=== PATIENT | female | born 1950 | race Caucasian/White ===

== ENCOUNTER 2017-12-02 05:29 | Outpatient (CLI) | payer MEDICARE, BC, SELFPAY ==
[2017-12-02 12:10] LABS: Hemoglobin A1C 5.3 % (4.5-6.2)
[2017-12-02 12:23] LABS: Cholesterol 214 mg/dL (50-200); HDL Cholesterol 95 mg/dL (40-60); LDL CHOLESTEROL 109 mg/dL (<100); Triglyceride 50 mg/dL (30-150)
== END 2017-12-02 05:49 ==
PROVIDERS: PCP Nurse Practitioner Family; Visit Provider Nurse Practitioner Family
DX: R73.03 Prediabetes (principal); E78.6 Lipoprotein deficiency
CPT/HCPCS: 36415; 80061; 83721; 83036

== ENCOUNTER 2018-01-03 00:43 | Outpatient (CLI) | payer MEDICARE, BC, SELFPAY ==
--- NOTE | 2018-01-03 15:20 | DI.RAD_ITS ---
SYMPTOMS/DIAGNOSIS: OSTEOPOROSIS SCREENING, Z78.0 DEXA SCAN: Routine examination. No priors. Evaluation of the lateral spine shows no compression deformities. Evaluation of the left hip shows a total T score of -1.5 and a Z score of -0.3. This is consistent with osteopenia and an increased fracture risk. Evaluation of the lumbar spine shows a total T score of -0.9 and a Z score of 0.9, which is within normal limits. IMPRESSION: Osteopenia in the left hip.
--- NOTE | 2018-01-03 15:40 | DI.MAMMO_ITS ---
SYMPTOM/DIAGNOSIS: SCREENING MAMMOGRAMS: Mammograms were interpreted according to the usual protocol including computer analysis with CAD system, tomosynthesis and C view imaging. Comparison is with the prior examinations. No masses or microcalcifications are seen. There is nothing to suggest malignancy. IMPRESSION: Negative mammogram. Routine screening is recommended. Category 1 , breast density category C. MQSA ASSESSMENT OF FINDINGS: Negative. Category 1. Patient will receive a letter notifying them of these results. Bi-RADS category C. The breasts are heterogeneously dense, which may obscure small masses.
== END 2018-01-03 01:03 ==
PROVIDERS: PCP Nurse Practitioner Family; Visit Provider Nurse Practitioner Family
DX: Z12.31 Encounter for screening mammogram for malignant neoplasm of breast (principal); M85.88 Other specified disorders of bone density and structure, other site; Z78.0 Asymptomatic menopausal state
CPT/HCPCS: 77063; 77067; 77080

== ENCOUNTER 2018-10-18 08:14 | Emergency (ER) | payer MEDICARE, BC, SELFPAY ==
[2018-10-18 08:17] VITALS: BP 116/60; PULSE 53; RESP 16; TEMP 36.7; O2SAT 98
--- NOTE | 2018-10-18 08:20 | ED.GENADUL_ITS ---
Discharge Plan Disposition Patient Disposition: HOME Condition: Stable Discharge Details Chief Complaint: Orthopedic Clinical Impression: Closed fracture of both wrists, Closed head injury, Abrasion Primary Care Provider: Felipa Mensah ED Provider: Moon Cuadra Home Meds and New Rx's Prescriptions: New tramadol 50 mg tablet 50 mg PO Q6H PRN (Reason: pain) Qty: 10 RF: 0 Continued omeprazole 20 mg capsule,delayed release(DR/EC) 20 mg PO DAILY Qty: 90 RF: 4 No Action acetaminophen 500 mg tablet 1,000 mg PO Q8H PRN (Reason: pain) Qty: 60 RF: 3 ibuprofen 600 mg tablet 600 mg PO TID PRNQty: 60 RF: 3 Discharge Instructions Instructions: Wrist Fracture in Adults (ED), Head Injury (ED), Abrasion (ED) Additional Instructions: Alternate tylenol and motrin as needed and directed for pain. Take the tramadol as needed and directed for pain not relieved with motrin or tylenol. You will receive a call from orthopedics Dr. Cabello later today. Follow-up with your primary care doctor next week for reevaluation of your head injury as needed. Return to the emergency department if you develop any worsening or concerning symptoms of persistent numbness or tingling in your fingers or hands, fever, persistent headaches, vomiting, dizziness or any other concerns. Referrals: Low Cabello MD [ [facility] STAFF PHYSICIAN] - Discharge Data Discharge Date/Time-TO BE ENTERED AT DEPARTURE: 10/18/18 11:50 Discharge Physician: Moon Cuadra Medical Decision Making 68-year-old female who presents with bilateral wrist pain, headache and bilateral knee abrasions status post mechanical fall prior to arrival. She is unsure of LOC. States headache is 5/10. No C-spine, T-spine or L-spine tenderness. Chest and abdomen nontender. Bilateral wrist tenderness. No bony deformity. Remainder of extremities with normal range of motion and without bony deformity. Tetanus up-to-date. Will give a dose of Tylenol, and sent for CT head and bilateral wrist x-rays. 0910 --right wrist x-ray notes right distal radius fracture and ulnar styloid fracture. Left wrist x-ray notes radial styloid and ulnar styloid fractures. CT head negative. 1000 --xrays reviewed with Dr. Cabello -patient will need operative repair of right wrist. Requesting CT of left wrist for further evaluation. CT L wrist notes intraarticular fracture of radius; ulna fracture not seen; possible tiny calcific densities within carpal bones that may be avulsion fractures. Please note that CT R wrist was done in error by radiology - they switched the order thinking it was ordered wrong. D/w radiology and they will d/w Judi if they can omit this from pt charges. CT L wrist reviewed with Dr. Cabello and pt may likely need operative repair of L wrist as well. Recommends volar splints to b/l wrists and b/l slings which pt can alternate if needed. Dr. Cabello will call pt at home later this evening to discuss follow up - surgery may be tomorrow or next week. Pt declined oxycodone and hydrocodone but will take tramadol. She is instructed to rest, ice, elevate. She was given ortho contact information and advised that Dr. Cabello will call her later today. She is advised to return here with any concerns. Medical Records Medical records reviewed: Yes I reviewed the patient's medical records. Imaging Data Radiologic Study: Radiologist's impression: RIGHT WRIST: Three views. There is a comminuted intraarticular fracture of the distal right radius. There is slight widening of the fracture in the AP direction. Moderate displacement of some of the fracture fragments is noted. There is a nondisplaced fracture of the ulnar styloid process. No other fractures or dislocations are seen. Moderately severe degenerative changes are seen at the 1st carpometacarpal joint. There is soft tissue swelling about the wrist. IMPRESSION: Distal right radial and ulnar fractures as described. LEFT WRIST: Three views. There is a nondisplaced fracture of the ulnar styloid process. There are also lucencies seen through the distal radius, particularly on the lateral view, suggesting a nondisplaced intraarticular fracture. The fracture does appear to involve the radial styloid process. No other fracture or dislocation is seen. Moderate degenerative changes are seen at the 1st carpometacarpal joint. There is associated soft tissue swelling. IMPRESSION: Fractures involving the distal left radius and ulna as described. CT BRAIN: Noncontrast examination. No priors. The ventricles and sulci are consistent with the patient's age. No evidence of an acute territorial infarct, intracranial hemorrhage, midline shift or mass effect is identified. The ventricles are intact. The basilar cisterns are patent. No fluid levels are seen in the visualized paranasal sinuses. The mastoid air cells are clear. The calvarium is intact. IMPRESSION: No acute intracranial process. CT SCAN OF THE LEFT WRIST: Multiple contiguous axial images of the left wrist were obtained. Sagittal and coronal reformatted images were evaluated on the Siemens workstation. There is a comminuted intraarticular fracture involving the distal left radius. There is mild distraction of the fracture noted. The ulnar styloid process appears intact. There is a tiny ossific density seen at the radial aspect of the pisiform. A donor site is not apparent, but a small avulsed fracture cannot be excluded. There is also a tiny calcific density at the ulnar aspect of the trapezium. Again, this may represent a chronic calcification as a donor site is not readily available. Moderate degenerative changes are seen at the 1st carpometacarpal joint. There is soft tissue swelling about the wrist. IMPRESSION: 1. Comminuted mildly distracted intraarticular fracture of the distal left radius. 2. Tiny calcific densities adjacent to both the trapezium and the pisifo rm. These may be chronic, but small avulsed fractures cannot be excluded. CT SCAN OF THE RIGHT WRIST: Multiple contiguous axial images of the right wrist were obtained. Sagittal and coronal reformatted images were evaluated on the Siemens workstation. There is a comminuted intraarticular fracture involving the right radius. Moderate displacement of the fracture fragments is noted. There is a nondisplaced fracture of the ulnar styloid process. No other fractures identified. Chondrocalcinosis is seen. There are moderately severe degenerative changes of the 1st carpometacarpal joint. Soft tissue swelling is noted. IMPRESSION: Comminuted intraarticular displaced fracture involving the distal radius, nondisplaced ulnar styloid process fracture. HPI General Mode of arrival: ambulatory . Date/Time Provider Initiated Documentation: 10/18/18 08:17 . Limitations to Documentation: no limitations . Information obtained by: patient . HPI Narrative: Patient is a 68-year-old female who presents with bilateral wrist pain, bilateral knee abrasions and headache status post mechanical fall at [facility] prior to arrival. Patient states she was walking on the track when she did not see a rolling cylinder in front of her when greeting a friend and she tripped over it hitting both knees on the cylinder and the ground and falling onto bilateral outstretched hands. She states she also hit her head on the ground. She initially denied any LOC or vomiting but now states she may have passed out for a couple seconds. She states her headache is 5/10. She denies any chest pain, abdominal pain, neck pain, back pain, other extremity pain. She states she has not taken anything yet for pain. States her tetanus is up-to-date. Related Data Home Medications Medication Instructions Recorded Confirmed omeprazole 20 mg capsule,delayed 20 mg PO DAILY #90 cap 07/17/18 10/19/18 release tramadol 50 mg PO Q6H PRN #10 tab 10/18/18 10/19/18 acetaminophen 1,000 mg PO Q8H PRN #60 tab 10/19/18 ibuprofen 600 mg PO TID PRN #60 tab 10/19/18 Previous Rx's Medication Instructions Recorded omeprazole 20 mg capsule,delayed 20 mg PO DAILY #90 cap 07/17/18 release tramadol 50 mg PO Q6H PRN #10 tab 10/18/18 acetaminophen 1,000 mg PO Q8H PRN #60 tab 10/19/18 ibuprofen 600 mg PO TID PRN #60 tab 10/19/18 Allergies Allergy/AdvReac Type Severity Reaction Status Date / Time No Known Allergies Allergy Unverified 10/19/18 08:37 General Stated Complaint: Orthopedic JOHN: 3 Review of Systems Review of Systems All systems reviewed & are unremarkable except as noted in HPI and below Constitutional Reports as per HPI, Denies chills, Denies fever(s) and Reports headache(s) Eyes Denies blurry vision ENT Denies dizziness, Reports headache(s), Denies sore throat and Denies throat swelling Cardiovascular Denies chest pain and Denies dyspnea Respiratory Denies cough and Denies dyspnea Gastrointestinal Denies abdominal pain, Denies diarrhea and Denies vomiting Genitourinary Denies hematuria and Denies dysuria Musculoskeletal Denies back pain, Denies numbness and Reports other (b/l wrist pain) Integumentary/Breasts Denies lesions and Denies rash Comments: abrasions to both knees Neurologic Denies dizziness, Reports headache(s), Denies focal weakness and Denies numbness Allergic/Immunologic Denies throat swelling [facility] Medical History (Updated 10/19/18 @ 08:57 by Low Cabello MD) GERD (gastroesophageal reflux disease) (Chronic) Insomnia Insomnia (Chronic 02/08/12) Osteopenia of left hip (Chronic ~12/2017) Surgical History (Updated 10/20/18 @ 15:42 by Felipa Mensah NP) S/P ORIF (open reduction internal fixation) fracture (Acute 10/19/18) S/P tonsillectomy and adenoidectomy (Acute) Family History Mother Substance abuse Diabetes Valvular heart disease Heart disease Breast cancer Father Alzheimer's disease Sister Breast cancer Brother Non Hodgkin's lymphoma Brother Multiple sclerosis Brother Atrial fibrillation Heart disease Grandfather No problems noted. Grandfather No problems noted. Grandmother Heart disease Grandmother Breast cancer Son Asthma Son No problems noted. Daughter GI disease Social History Smoking/Tobacco Use Status: Never Alcohol Intake: current Alcohol Intake frequency: a few times a week Alcohol type: beer, wine and hard liquor Drug use: Never Substance use type: does not use Do you feel safe at home: Yes Do you feel safe in your relationship?: Yes Exam Const General: cooperative and healthy appearing Orientation: alert and awake HENMT Head: normal to inspection Ears: hearing grossly normal bilaterally, external ears normal and TM's normal bilaterally General nose exam: external nose normal Nose image: 1. Superficial abrasion. No bony deformity, edema, ecchymoses to nasal bridge. No epistaxis. Face and sinus: normal facial exam Face images: 1. Tenderness to palpation L lateral supraorbital region/eyebrow w/o bony deformity, edema, ecchymoses, erythema, open wounds, or step off. Mouth: oral mucosae normal Teeth and gingiva: dentition normal Throat: posterior oropharynx normal Eyes General: appearance normal, both eyes and all related structures Eyelids: eyelids normal Pupils: PERRL EOM: EOM intact bilaterally Neck Neck: normal visual inspection Lymphatic: no lymphadenopathy noted Chest Chest: normal palpation of entire chest wall and no tenderness Resp Effort & Inspection: normal respiratory effort and able to speak in complete sentences Auscultation: clear to auscultation bilaterally Cardio Rate: regular rate Rhythm: regular rhythm GI Palpation: soft, not firm, no guarding, no hepatosplenomegaly, no masses and nontender Back/Spine/Pelvis Cervical Spine: No cervical spinal tenderness Thoracic/Lumbar Spine: No thoracic spinal tenderness and No lumbar spinal tenderness Skin General skin exam: no rashes or lesions noted Neuro General: alert and awake Cognition: normal cognition Speech: speech normal Gait: normal gait Motor: muscle tone normal throughout Sensory Exam: no sensory deficits noted Extrem Other: Right wrist: Mild edema and tenderness palpation on dorsal aspect. No right snuffbox tenderness. No bony deformity. Left wrist: Left snuffbox tenderness. No edema, erythema, ecchymosis, bony deformity or significant tenderness to palpation. Normal range of motion at bilateral shoulders, elbows, hands, hips, knees, ankles. Superficial abrasions to bilateral anterior knees without bony deformity, ecchymosis, edema, erythema. Psych Appearance: grossly normal Mental Status: mental status grossly normal Speech and Movement: speech and movement normal Affect: normal affect Thought Process: normal Course Vital Signs Temperature 98.1 F 10/18/18 08:17 Pulse 53 L 10/18/18 08:17 Respiratory Rate 16 10/18/18 08:17 Blood Pressure 116/60 10/18/18 08:17 Pulse Oximetry 98 10/18/18 08:17 Temperature 98.1 F 10/18/18 08:17 Pulse 53 L 10/18/18 08:17 Respiratory Rate 16 10/18/18 08:17 Blood Pressure 116/60 10/18/18 08:17 Blood Pressure Position Sitting 10/18/18 08:17 Pulse Oximetry 98 10/18/18 08:17 Oxygen Delivery Method Room Air 10/18/18 08:17 Oxygen Flow Rate 0 10/18/18 08:17 Pain Level 7 10/18/18 08:17 Procedures Orthopedic Splinting/Casting Injury #1: Side: right Upper Extremity Injury Location: wrist Upper Extremity Immobilizer: volar splint Additional Comments: Sling given. NV intact pre and post splinting. Injury #2: Side: left Upper Extremity Injury Location: wrist Upper Extremity Immobilizer: volar splint Additional Comments: Sling given. NV intact pre and post splinting.
[2018-10-18] MEDS: Acetaminophen 325 MG TAB 650 MG PO (08:35)
--- NOTE | 2018-10-18 09:02 | DI.RAD_ITS ---
SYMPTOMS/DIAGNOSIS: S/P FALL, ? ACUTE FRACTURE RIGHT WRIST: Three views. There is a comminuted intraarticular fracture of the distal right radius. There is slight widening of the fracture in the AP direction. Moderate displacement of some of the fracture fragments is noted. There is a nondisplaced fracture of the ulnar styloid process. No other fractures or dislocations are seen. Moderately severe degenerative changes are seen at the 1st carpometacarpal joint. There is soft tissue swelling about the wrist. IMPRESSION: Distal right radial and ulnar fractures as described. LEFT WRIST: Three views. There is a nondisplaced fracture of the ulnar styloid process. There are also lucencies seen through the distal radius, particularly on the lateral view, suggesting a nondisplaced intraarticular fracture. The fracture does appear to involve the radial styloid process. No other fracture or dislocation is seen. Moderate degenerative changes are seen at the 1st carpometacarpal joint. There is associated soft tissue swelling. IMPRESSION: Fractures involving the distal left radius and ulna as described.
--- NOTE | 2018-10-18 09:04 | DI.CT_ITS ---
SYMPTOMS/DIAGNOSIS: S/P HEAD INJURY, HIT LEFT EYEBROW ON GROUND, ? ACUTE FRACTURE/INTRACRANIAL INJURY CT BRAIN: Noncontrast examination. No priors. The ventricles and sulci are consistent with the patient's age. No evidence of an acute territorial infarct, intracranial hemorrhage, midline shift or mass effect is identified. The ventricles are intact. The basilar cisterns are patent. No fluid levels are seen in the visualized paranasal sinuses. The mastoid air cells are clear. The calvarium is intact. IMPRESSION: No acute intracranial process. The findings were discussed with Dr. Cuadra of the Emergency Department on the date of the examination.
[2018-10-18] MEDS: Ibuprofen 600 MG TAB PO (09:38)
--- NOTE | 2018-10-18 09:58 | DI.CT_ITS ---
SYMPTOMS/DIAGNOSIS: S/P FALL, ASSESS EXTENT OF FRACTURES CT SCAN OF THE LEFT WRIST: Multiple contiguous axial images of the left wrist were obtained. Sagittal and coronal reformatted images were evaluated on the Siemens workstation. There is a comminuted intraarticular fracture involving the distal left radius. There is mild distraction of the fracture noted. The ulnar styloid process appears intact. There is a tiny ossific density seen at the radial aspect of the pisiform. A donor site is not apparent, but a small avulsed fracture cannot be excluded. There is also a tiny calcific density at the ulnar aspect of the trapezium. Again, this may represent a chronic calcification as a donor site is not readily available. Moderate degenerative changes are seen at the 1st carpometacarpal joint. There is soft tissue swelling about the wrist. IMPRESSION: 1. Comminuted mildly distracted intraarticular fracture of the distal left radius. 2. Tiny calcific densities adjacent to both the trapezium and the pisiform. These may be chronic, but small avulsed fractures cannot be excluded. CT SCAN OF THE RIGHT WRIST: Multiple contiguous axial images of the right wrist were obtained. Sagittal and coronal reformatted images were evaluated on the Siemens workstation. There is a comminuted intraarticular fracture involving the right radius. Moderate displacement of the fracture fragments is noted. There is a nondisplaced fracture of the ulnar styloid process. No other fractures identified. Chondrocalcinosis is seen. There are moderately severe degenerative changes of the 1st carpometacarpal joint. Soft tissue swelling is noted. IMPRESSION: Comminuted intraarticular displaced fracture involving the distal radius, nondisplaced ulnar styloid process fracture. The findings were discussed with the Emergency Department on the date of the examination.
== END 2018-10-18 11:50 | disposition home or self-care (01) ==
PROVIDERS: Emergency Provider Physician Assistant; PCP Nurse Practitioner Family
DX: S09.90XA Unspecified injury of head, initial encounter (principal); S52.571A Other intraarticular fracture of lower end of right radius, initial encounter for closed fracture; S52.614A Nondisplaced fracture of right ulna styloid process, initial encounter for closed fracture; S52.615A Nondisplaced fracture of left ulna styloid process, initial encounter for closed fracture; S52.572A Other intraarticular fracture of lower end of left radius, initial encounter for closed fracture; S80.211A Abrasion, right knee, initial encounter; S80.212A Abrasion, left knee, initial encounter; W01.198A Fall on same level from slipping, tripping and stumbling with subsequent striking against other object, initial encounter
CPT/HCPCS: 29125; 99284; 70450; 73110; 73200; 99285; L3650

== ENCOUNTER 2018-10-19 07:59 | Day surgery (SDC) | payer MEDICARE, BC, SELFPAY ==
[2018-10-19] VITALS (8 sets, daily range): BP systolic 116–131; BP diastolic 60–90; PULSE 48–60; RESP 14–17; TEMP 35.8–36.4; O2SAT 95–97
[2018-10-19] MEDS: Celecoxib 200 MG CAP 400 MG PO (08:41)
[2018-10-19] MEDS: Acetaminophen 500 MG TAB 1000 MG PO (08:41)
--- NOTE | 2018-10-19 08:42 | W.PM.HP.N ---
Date of service: 10/19/18 Time of Service: 08:42 Assessment and Plan (1) Fracture of left distal radius: Current visit: No Status: Acute Aileen is a 68yo active female with bilateral intra-articular wrist fractures. Both fractures are displaced intraarticularly. The right is the worst with displacement of greater than 5mm and comminution. The left has displacement of 3 mm and thus both meet surgical indications. Furthermore, since both are involved, I would advocate for surgical fixation to allow more motion and use of the hands given bilateral involvement. I reviewed the risks of the procedure to include bleeding, infection, pain, stiffness, hardware prominence, hardware failure, malunion, nonunion, damage to tendons, damage to nerves and vessels. Despite these risks, she agrees to proceed. Qualifiers: Encounter type: initial encounter Fracture type: closed Fracture morphology: other intra-articular Qualified Code(s): S52.572A - Other intraarticular fracture of lower end of left radius, initial encounter for closed fracture (2) Closed fracture of right distal radius: Current visit: No Status: Acute Qualifiers: Encounter type: initial encounter Fracture morphology: other intra-articular Qualified Code(s): S52.571A - Other intraarticular fracture of lower end of right radius, initial encounter for closed fracture History of Present Illness Chief Complaint: Bilateral wrist fractures Narrative: Aileen is a 68yo active female who tripped at the [employer] track yesterday. She fell onto her knees, wrists, and head. She was seen in the ED yesterday and diagnosed with bilateral wrist fractures. CT Head was negative. She has had pain worse in the right but in both, more radial than ulnar. Some numbness and tingling of the right hand which is very intermittent. Pain is controlled with 2 tramadol since ED discharge. She is able to move her fingers. No chest pain or SOB. No dizziness, headache. No change in vision. No significant medical history. Review of Systems Review of Systems All systems reviewed & are unremarkable except as noted in HPI and below PFSH Medical History GERD (gastroesophageal reflux disease) (Chronic) Insomnia Insomnia (Chronic 02/08/12) Osteopenia of left hip (Chronic ~12/2017) Surgical History Tonsillectomy and adenoidectomy Family History Mother Substance abuse Diabetes Valvular heart disease Heart disease Breast cancer Father Alzheimer's disease Sister Breast cancer Brother Non Hodgkin's lymphoma Brother Multiple sclerosis Brother Atrial fibrillation Heart disease Grandfather No problems noted. Grandfather No problems noted. Grandmother Heart disease Grandmother Breast cancer Son Asthma Son No problems noted. Daughter GI disease Social History Smoking/Tobacco Use Status: Never Alcohol Intake: current Alcohol Intake frequency: a few times a week Alcohol type: beer, wine and hard liquor Drug use: Never Substance use type: does not use Do you feel safe at home: Yes Do you feel safe in your relationship?: Yes Meds Home Medications Medication Instructions Recorded Confirmed Type omeprazole 20 mg capsule,delayed 20 mg PO DAILY #90 cap 07/17/18 10/19/18 Rx release tramadol 50 mg PO Q6H PRN #10 tab 10/18/18 10/19/18 Rx acetaminophen 650 mg PO PRN PRN 10/19/18 10/19/18 History ibuprofen 200 mg PO Q6H PRN 10/19/18 10/19/18 History Allergies Allergy/AdvReac Type Severity Reaction Status Date / Time No Known Allergies Allergy Unverified 10/19/18 08:37 Exam Const General: cooperative, healthy appearing and comfortable Nutritional Appearance: average body habitus Orientation: alert, awake and oriented x3 Resp Effort & Inspection: normal respiratory effort and able to speak in complete sentences Auscultation: clear to auscultation bilaterally Cardio Rate: regular rate Extrem Other: Both wrists are in splints. Bilateral exams show intact finger flexion, finger extension, thumb extension, and finger abduction/adduction. SILT M/R/U bilaterally. CR < 2 sec. Results Imaging Imaging Studies: X-ray of the right wrist demonstrates a volar lomax type fracture with volar displacement of the wrist and a primary coronal fracture plane with some comminution seen. X-ray of the left wrist demonstrates some little comminution at the tip of the radial styloid and what appears to be intra-articular fracture lines which are non displaced. CT of the right wrist shows the above mentioned fracture with notable comminution at the joint and in the metaphysis. There is significant displacement of the primary volar fragment which is intraarticular. There is communition of the radial styloid and the radial aspect of the distal radius. CT of the left wrist demonstrates a coronal fracture plane with displacement of 3 mm in the central portion. There is some mild commintuion about the radialy styloid but no gross displacement. Last Vital Signs Temp 36.4 C L 10/19/18 08:24 Pulse 55 L 10/19/18 08:24 Resp 16 10/19/18 08:24 BP 120/70 10/19/18 08:24 Pulse Ox 95 10/19/18 08:24
[2018-10-19] MEDS: Bupivacaine LIPOSOME/PF 133 MG/10 ML VIAL IJ ×2 (09:30→11:35)
[2018-10-19] MEDS: Lactated Ringers 1,000 ML 80 ML IV (09:40)
--- NOTE | 2018-10-19 09:40 | PDOC.DSDIS_ITS ---
Discharge Plan Disposition Patient Disposition: HOME Condition: Good Discharge Details Reason For Visit: B/L DISTAL RADIUS FX Attending Provider: Low Cabello Primary Care Provider: Felipa Mensah Home Meds and New Rx's Prescriptions: New acetaminophen 500 mg tablet 1,000 mg PO Q8H PRN (Reason: pain) Qty: 60 RF: 3 ibuprofen 600 mg tablet 600 mg PO TID PRNQty: 60 RF: 3 Continued omeprazole 20 mg capsule,delayed release(DR/EC) 20 mg PO DAILY Qty: 90 RF: 4 tramadol 50 mg tablet 50 mg PO Q6H PRN (Reason: pain) Qty: 10 RF: 0 Discontinued acetaminophen 325 mg Tablet 650 mg PO PRN PRNRF: 0 ibuprofen 200 mg Tablet 200 mg PO Q6H PRNRF: 0 Discharge Instructions Additional Instructions: Activity: You should keep the hands/wrists elevated as much as possible for the first few days. You may use the other fingers as tolerated but avoid trying to do too much too soon. You may perform light activities with the splint in place. You have been given slings for comfort and support. You do not have to use them but they do help when up and mobilizing. Dressing/Cast: Your splint should stay in place at all times. Do NOT get it wet. You may loosen the STEPHENIE wrap if you feel it is too tight and then rewrap more loosely. Medications: - You should take Tylenol and Ibuprofen for baseline pain control. - You have been prescribed a stronger pain medication, Tramadol, for breakthrough pain. - You may apply ice over the wrist, just double bag so it doesn't get wet. Follow-up: 10-14 days Referrals: Low Cabello MD [ [facility] STAFF PHYSICIAN] - Equipment/Supplies: Splint Activity:: Elevate Remove Dressings/Wound Care:: Do Not Remove Shower/Bathe:: Cover Diet:: As Tolerated Discharge Orders Discharge Orders: Discharge Order (Routine); Ordered 10/19/18 Ordered By: Low Cabello DS: Diagnosis Discharge Diagnosis (1) Fracture of left distal radius: Status: Acute (2) Closed fracture of right distal radius: Status: Acute
[2018-10-19] MEDS: ceFAZolin 2 GM/50 ML BAG IVPB (09:50)
--- NOTE | 2018-10-19 11:04 | DI.RAD_ITS ---
SYMPTOMS/DIAGNOSIS: FRACTURE RIGHT WRIST: FLUOROSCOPY OF THE WRIST: Fluoroscopy Time: 58 sec Hardcopy images show a fixation plate across the volar aspect of the distal radius for a fracture fixation. A nondisplaced ulnar styloid fracture is seen.
[2018-10-19] MEDS: Bupivacaine 0.5% Pres-Free 30 ML VIAL (11:35)
--- NOTE | 2018-10-19 13:50 | DI.RAD_ITS ---
SYMPTOMS/DIAGNOSIS: LT WRIST FRACTURE C-ARM FLUOROSCOPY OF THE LEFT WRIST: Fluoroscopy Time: 38 sec Comparison is made with plain films of the previous day. Fluoroscopy was provided in the OR for Dr. Cabello. Hardcopy images show placement of a fixation plate along the volar aspect of the distal radius for fracture fixation. Please see procedure note for details.
--- NOTE | 2018-10-20 07:25 | ROE_ITS ---
Date of service: 10/19/18 Time of Service: 13:02 Operative Note DATE OF PROCEDURE: 10/19/18 PRE-OP DIAGNOSIS: Bilateral Intra-articular Distal Radius Fracture POST-OP DIAGNOSIS: same PROCEDURE: Open Reduction and Internal Fixation of Left and Right Distal Radius SURGEON: Low Cabello ASSISTING SURGEON: Alla Hoyt ANESTHESIA: GETA and regional ESTIMATED BLOOD LOSS: 10 PATHOLOGY: none sent TOURNIQUET TIME: 55 COMPLICATIONS: None Patient was transported to: PACU Patient's condition: stable Indications: Aileen is a 68yo who I have seen for a bilateral distal radius fractures. Given the deformity, displacement, fracture pattern, and effect on daily function due to bilateral nature, I recommended surgical fixation. I reviewed the risk of the procedure to include bleeding, infection co-pay, stiffness, damage to nerves and vessels, damage to muscles and tendons, malunion, nonunion, hardware prominence, tendon rupture, need for repeat p rocedures. Despite these risks, the patient elected to proceed. Findings: There is a distal radius fracture which had at least 3 intra-articular parts on the right and 2 primary parts on the left. It was reduced and fixed with a Synthes volar locking plate on both sides. Procedure Description: Aileen was greeted in the preoperative holding area. The correct patient and site was confirmed and marked. The history and physical was updated. The consent was reviewed the patient and signed. The patient was taken to the PACU for administration of regional anesthetic, supraclavicular block, on the right side. The patient was taken to the operating room and placed in the supine position. All bony problems were well-padded. The left arm was placed onto a radiolucent hand table. A nonsterile tourniquet was placed high up on the right arm. Prophylactic antibiotics in the form of cefazolin were administered. The left arm and right arm was prepped with ChloraPrep and draped in a standard fashion. The right and will be performed first and while the splint was being applied I would move onto the left side. A timeout was performed for safe surgery. The tourniquet was inflated to 275 mmHg where it stayed for 55 minutes. A standard longitudinal incision was made overlying the flexor carpi radialis tendon starting at the distal wrist crease and moving proximally. The skin was incised sharply. The flexor carpi radialis tendon and its sheath is identified. The sheath was opened. The tendon was moved ulnarly in the floor of the sheath was incised. Blunt dissection the flexor pollicis longus muscle belly and tendon were also made radially exposing the pronator quadratus and the distal radius. The printer quadratus was elevated with an ulnar-based flap. This exposed the volar distal radius and the fracture. A brothers elevator was used for full exposure of the volar surface of the distal radius. The primary fracture line was exposed. Using a series of elevators, curettes, and knife, the fracture was fully debrided of any fibrous tissue and callus formation. I used a freer elevator to help mobilize the fragments. There was comminution of the metaphysis. This was opened up and allow for debridement of fracture hematoma. Opening of the fracture also allowed to ensure that all internal fragments were pushed up to the articular surface from within. I then performed a closed reduction. Using gentle traction and fracture manipulation, this reduction was held. Fluoroscopic images were used to confirm adequate reduction. An appropriately sized Synthes volar locking plate was then placed onto the bony surface of the distal radius. Was then held there with a distal radius clamp sandwiching the plate to the distal segment. A single K wire was placed through the distal end. Fluoroscopy was once again used to confirm appropriate positioning of the plate on the distal radius. A reduction K wire was placed into the slotted hole on the shaft but not tightened all the way to allow for manipulation of the distal segment onto the proximal shaft. A single nonlocking screw was placed to the distal portion of the plate securing the plate against the bone of the distal radial metaphysis. The lateral fluoroscopic view seem to indicate that the articular fracture which was in the coronal plane primarily, was reduced. Once again, the plate was evaluated to make sure it was aligned appropriately. The single screw was also checked to make sure it was in appropriate positioning for trajectory of future screws. The remainder of the screws within the volar locking plate were filled with locking screws. These were made sure not to penetrate the dorsal cortex. Fluoroscopy was then used against confirm appropriate reduction. Nonlocking screws were placed within the 3 shaft screw holes. Final x-rays were obtained which demonstrated adequate reduction and positioning of hardware. The dorsal sunrise view was also obtained to ensure correct sizing of screws. The wound was then thoroughly irrigated. The pronator quadratus was reapproximated with a 0 Vicryl. The tourniquet was released after 55 minutes and there was no notable vascular injury. The fingers were warm and well- perfused. The deep dermal layer was closed with a 2-0 Vicryl. The skin was closed with 4-0 nylon. The wound was dressed with Xeroform, 4 x 4's, web roll. A short arm splint was applied. During the unsterile portions of closure the back table and left side was kept sterile. The left arm was prepped and draped at the same time of the right arm initially. This was exposed and the left wrist was addressed next. An Esmarch tourniquet was used on the forearm giving IV access to the proximal left arm. A standard longitudinal incision was made overlying the flexor carpi radialis tendon starting at the distal wrist crease and moving proximally. The skin was incised sharply. The flexor carpi radialis tendon and its sheath is identified. The sheath was opened. The tendon was moved ulnarly in the floor of the sheath was incised. Blunt dissection the flexor pollicis longus muscle belly and tendon were also made radially exposing the pronator quadratus and the distal radius. The printer quadratus was elevated with an ulnar-based flap. This exposed the volar distal radius and the fracture. A brothers elevator was used for full exposure of the volar surface of the distal radius. There is no comminution and a portion of the volar cortex was still in continuity. I then performed a closed reduction. Using gentle traction and anterior to posterior compression, this reduction was held. Fluoroscopic images were used to confirm adequate reduction. An appropriately sized Synthes volar locking plate was then placed onto the bony surface of the distal radius. Was then held there with a distal radius clamp sandwiching the plate to the distal segment. A single K wire was placed through the distal end. Fluoroscopy was once again used to confirm appropriate positioning of the plate on the distal radius. A reduction K wire was placed into the slotted hole on the shaft but not tightened all the way to allow for manipulation of the distal segment onto the proximal shaft. A single nonlocking screw was placed to the distal portion of the plate securing the plate against the bone of the distal radial metaphysis. The lateral fluoroscopic view seem to indicate that the articular fracture which was in the coronal plane primarily, was reduced. Once again, the plate was evaluated to make sure it was aligned appropriately. The single screw was also checked to make sure it was in appropriate positioning for trajectory of future screws. The remainder of the screws within the volar locking plate were filled with locking screws. These were made sure not to penetrate the dorsal cortex. Fluoroscopy was then used against confirm appropriate reduction. Nonlocking screws were placed within the 3 shaft screw holes. Final x-rays were obtained which demonstrated adequate reduction and positioning of hardware. The dorsal sunrise view was also obtained to ensure correct sizing of screws. The wound was then thoroughly irrigated. The pronator quadratus was reapproximated with a 0 Vicryl. The tourniquet was released and there was no notable vascular injury. The fingers were warm and well-perfused. The deep dermal layer was closed with a 2-0 Vicryl. The skin was closed with 4-0 nylon. The wound was dressed with Xeroform, 4 x 4's, web roll. A short arm splint was applied. At the end the case all counts are correct. Patient was transferred back to the PACU in stable condition.
--- NOTE | 2018-10-23 09:49 | PDOC.ANES ---
Date of service: 10/23/18 Time of Service: 09:49 Anesthesia Note Report Anesthesia Note: Aileen had called with concerns about her nerve block that she received on 10/19/18. She was concerned that it had not yet worn off. currently feels that it is almost completely worn off. Says that her upper right arm does still feel a little different. She was reassured that the block can sometimes take a while to fully wear off. I also told her that we would follow up with her in a few days to make sure that her sensation has fully returned.
--- NOTE | 2018-10-25 11:52 | PDOC.ANES ---
Date of service: 10/25/18 Time of Service: 11:52 Anesthesia Note Report Anesthesia Note: Talked to patient on phone today to follow up on her concerns about her nerve block. Her block has completely worn off and she is experiencing no paresthesia or motor weakness. Her pain is tolerable 3/10 and she seems to be progressing well taking tylenol and ibuprofen. I reassured her that her nerve block course is completely normal and given her story, I have no concerns at this time.
== END 2018-10-19 14:40 | disposition home or self-care (01) ==
PROVIDERS: PCP Nurse Practitioner Family; Visit Provider Student in an Organized Health Care Education/Training Program
PROC: (CPT 25609; principal; 2018-10-19 09:15)
DX: S52.572A Other intraarticular fracture of lower end of left radius, initial encounter for closed fracture (principal); S52.571A Other intraarticular fracture of lower end of right radius, initial encounter for closed fracture; W01.0XXA Fall on same level from slipping, tripping and stumbling without subsequent striking against object, initial encounter; Y92.328 Other athletic field as the place of occurrence of the external cause
CPT/HCPCS: 25609; 25608; C1713; 76000; 99236; 73100; J0690; J1100; J1885; J2250; J2405; L3650

== ENCOUNTER 2018-10-30 12:39 | Outpatient (CLI) | payer MEDICARE, BC, SELFPAY ==
--- NOTE | 2018-10-30 08:23 | DI.RAD_ITS ---
SYMPTOM/DIAGNOSIS: F/U WRIST ORIF LEFT WRIST: Comparison is made with intraoperative images dated 10/19/18. A volar fixation plate is again noted along the distal radius for fracture fixation. There has been no change in hardware or fracture alignment. RIGHT WRIST: Comparison is made with intraoperative images of 10/19/18. There has been no change in the alignment of the distal radial and ulnar styloid fractures or alignment of the distal radial fixation plate.
== END 2018-10-30 12:59 ==
PROVIDERS: PCP Nurse Practitioner Family; Referring Provider Nurse Practitioner Family; Visit Provider Student in an Organized Health Care Education/Training Program
DX: S52.571A Other intraarticular fracture of lower end of right radius, initial encounter for closed fracture (principal); S52.572A Other intraarticular fracture of lower end of left radius, initial encounter for closed fracture; X58.XXXA Exposure to other specified factors, initial encounter
CPT/HCPCS: 73110; L3908

== ENCOUNTER 2018-11-30 08:24 | Outpatient (CLI) | payer MEDICARE, BC, SELFPAY ==
--- NOTE | 2018-11-30 07:53 | DI.COMBO_ITS ---
SYMPTOM/DIAGNOSIS: F/U S/P ORIF BILATERAL WRISTS LEFT WRIST: 11/30 Three views were obtained. Note is again made of previously described fracture of the distal radius plate and screw fixation in place. Alignment appears unchanged in comparison with the previous examination of 10/30/2018. RIGHT WRIST: 11/30 Four views were obtained and show previously noted fracture of the distal radius with plate and screw fixation in place. Alignment appears essentially unchanged in comparison with previous films of 10/30/2018.
== END 2018-11-30 08:44 ==
PROVIDERS: PCP Nurse Practitioner Family; Referring Provider Nurse Practitioner Family; Visit Provider Student in an Organized Health Care Education/Training Program
DX: S52.572A Other intraarticular fracture of lower end of left radius, initial encounter for closed fracture (principal); S52.571A Other intraarticular fracture of lower end of right radius, initial encounter for closed fracture; X58.XXXA Exposure to other specified factors, initial encounter
CPT/HCPCS: 73110

== ENCOUNTER 2019-01-11 09:07 | Outpatient (CLI) | payer MEDICARE, BC, SELFPAY ==
--- NOTE | 2019-01-11 08:22 | DI.RAD_ITS ---
EXAM: XR WRIST LT COMPLETE INDICATION: f/u L wrist ORIF. COMPARISON: XR wrist RT complete from 11/30/2018 TECHNIQUE: 2D digital imaging was performed. FINDINGS: A fixation plate is again noted along the volar aspect of the distal radius. There has been continue d fracture healing. The fractures is barely visible. There are again noted to be degenerative change s at the 1st carpal metacarpal joint.
--- NOTE | 2019-01-11 08:22 | DI.RAD_ITS ---
EXAM: XR WRIST RT COMPLETE INDICATION: f/u R wrist ORIF. COMPARISON: XR WRIST LT COMPLETE from 01/11/2019 TECHNIQUE: 2D digital imaging was performed. FINDINGS: A volar fixation plate is again noted along the distal radius. There has been continued fracture patricia ling. The ulnar styloid fracture is unchanged. Degenerative changes are noted in the carpal region, greatest at the 1st carpal metacarpal joint. There is also widening of the scapholunate distance, un changed.
== END 2019-01-11 09:27 ==
PROVIDERS: PCP Nurse Practitioner Family; Referring Provider Nurse Practitioner Family; Visit Provider Student in an Organized Health Care Education/Training Program
DX: S52.572D Other intraarticular fracture of lower end of left radius, subsequent encounter for closed fracture with routine healing (principal); S52.571D Other intraarticular fracture of lower end of right radius, subsequent encounter for closed fracture with routine healing; M18.11 Unilateral primary osteoarthritis of first carpometacarpal joint, right hand; X58.XXXD Exposure to other specified factors, subsequent encounter
CPT/HCPCS: 73110

== ENCOUNTER 2019-01-12 01:31 | Outpatient (CLI) | payer MEDICARE, BC, SELFPAY ==
[2019-01-12 11:20] LABS: ALT 50 U/L (14-59); AST 29 U/L (15-37); Albumin 4.1 g/dL (3.4-5.0); Alkaline Phosphatase 65 U/L (46-116); Anion Gap 10.5 mmol/L (3-11); BUN 14 mg/dL (7-18); Bilirubin, Total 0.5 mg/dL (0.2-1.0); CO2 27.5 mmol/L (21.0-32.0); CREATININE 0.83 mg/dL (0.55-1.02); Calcium 9.1 mg/dL (8.5-10.1); Calculated LDL 100 mg/dL; Chloride 103 mmol/L (98-107); Cholesterol 204 mg/dL (50-200); Glucose 94 mg/dL (70-100); HDL Cholesterol 94 mg/dL (40-60); Potassium 4.6 mmol/L (3.5-5.1); Sodium 141 mmol/L (136-145); Triglyceride 53 mg/dL (30-150)
[2019-01-15 11:45] LABS: Vitamin D 25 Total 38.1 ng/ml (30-100)
== END 2019-01-12 01:51 ==
PROVIDERS: PCP Nurse Practitioner Family; Visit Provider Nurse Practitioner Family
DX: E78.5 Hyperlipidemia, unspecified (principal); M85.852 Other specified disorders of bone density and structure, left thigh
CPT/HCPCS: 36415; 80053; 80061; 82306

== ENCOUNTER 2019-02-01 02:10 | Outpatient (CLI) | payer MEDICARE, BC, SELFPAY ==
--- NOTE | 2019-02-01 12:03 | DI.MAMMO_ITS ---
EXAM: MAMMO SCREENING CLINICAL HISTORY: screening, Z12.39 TECHNIQUE: Mammograms were interpreted according to the usual protocol including computer analysis w [employer] CAD system, tomosynthesis and C-view imaging. COMPARISON: Current examination is compared with previous examinations including December 2017 FINDINGS: The breasts are heterogeneously dense with fairly symmetrical distribution of fibroglandular tissue. No dominant mass or clumped microcalcification is identified in either breast. Current examination is compared with previous examinations including December 2017 and there is a question of interval kitty nge in appearance of an area of asymmetric density or architectural distortion projected in the centr al portion of the left breast on CC and MLO views in comparison with the previous studies. Additiona l mammographic views of this area are requested to include CC and MLO spot-compression views and an u ltrasound of the left breast. IMPRESSION: Additional mammographic views and ultrasound of left breast requested as described above. Category 0, breast density category C. BI-RADS Cat 0 - Assessment Incomplete: Need additional imaging evaluation Breast Density - Category C - Heterogeneously dense
== END 2019-02-01 02:30 ==
PROVIDERS: PCP Nurse Practitioner Family; Visit Provider Nurse Practitioner Family
DX: Z12.31 Encounter for screening mammogram for malignant neoplasm of breast (principal); R92.8 Other abnormal and inconclusive findings on diagnostic imaging of breast
CPT/HCPCS: 77063; 77067

== ENCOUNTER → 2019-02-02 12:42 | Outpatient (BNVA) | payer MEDICARE, BC, SELFPAY | PROVIDERS: PCP Nurse Practitioner Family; Referring Provider Nurse Practitioner Family; Visit Provider Physical Therapy Assistant | DX: Z12.11 Encounter for screening for malignant neoplasm of colon (principal); Z80.0 Family history of malignant neoplasm of digestive organs ==

== ENCOUNTER 2019-02-07 00:41 | Outpatient (CLI) | payer MEDICARE, BC, SELFPAY ==
--- NOTE | 2019-02-07 11:02 | DI.MAMMO_ITS ---
EXAM: MG MAMMO SCREEN CALL BACK UNI and left breast ultrasound CLINICAL HISTORY: F/u mammo, ? CHANGE IN APPEARANCE IN AREA ASYMMETRIC DENSITY IN CENTRAL PORTION L T TECHNIQUE: Craniocaudal and mediolateral oblique Full Field Digital Mammography views with Computer Aided Diagnosis followed by Breast Tomosynthesis and left breast ultrasound. COMPARISON: Priors for comparison FINDINGS: Mammography/Tomosynthesis: Breast Density: Breast Density - Category C - Heterogeneously dense Masses/Architectural Distortion: None seen. Microcalcifications: No suspicious pleomorphic-type are seen. Skin Thickening/Nipple Retraction: None. Breast Ultrasound: Left breast ultrasound: Echotexture: Normal appearance of the glandular tissue. Shadowing: No suspicious foci. Cyst: None. Solid lesions: None seen. Ductal dilation: None. IMPRESSION: 1. No significant interval change with no specific features of malignancy noted. 2. Unless there is more urgent need, follow-up screening mammography is recommended, as per [place] [employer] guidelines. ACR BI-RAD Category- 1 Negative Breast Density - Category C - Heterogeneously dense The findings were discussed with the patient on the date of the examination. The mammogram demonstrates the patient's breast tissue is dense. Dense breast tissue is very common a nd is not abnormal but dense breast tissue can make it harder to find cancer on a mammogram. Also, de nse breast tissue may increase their breast cancer risk. [facility] was provided to the patient to raise their awareness. Use this report when you speak wi th the patient about their risks for breast cancer, which includes their family history. At that time , you may recommend for more screening tests (Ultrasound or MRI) as they might be useful based on the ir risk. A negative radiographic report should not delay biopsy if a dominant or clinically suspicious mass is present. Up to ten percent of cancers are not identified on mammography. A negative report may reinforce clinical impression. Adenosis and dense breasts may obscure an underlying neoplasm. False positive reports average 6 to 10%. Patient will receive a letter notifying them of these results.
== END 2019-02-07 01:01 ==
PROVIDERS: PCP Nurse Practitioner Family; Visit Provider Nurse Practitioner Family
DX: Z12.31 Encounter for screening mammogram for malignant neoplasm of breast (principal); R92.8 Other abnormal and inconclusive findings on diagnostic imaging of breast; N64.59 Other signs and symptoms in breast
CPT/HCPCS: 76642; 77063; 77067

== ENCOUNTER 2019-03-01 06:13 | Day surgery (SDC) | payer MEDICARE, BC, SELFPAY ==
[2019-03-01 06:25] VITALS: BP 108/74; PULSE 73; RESP 16; TEMP 36.6; O2SAT 95
[2019-03-01] MEDS: Lactated Ringers 1,000 ML 80 ML IV (06:53)
--- NOTE | 2019-03-01 07:58 | W.PM.DSUDISC ---
Discharge Plan Disposition Patient Disposition: HOME Condition: Good Discharge Details Reason For Visit: scope of colon Attending Provider: Ashli Andrade Primary Care Provider: Felipa Mensah Home Meds and New Rx's Prescriptions: Continued omeprazole 20 mg capsule,delayed release(DR/EC) 20 mg PO DAILY Qty: 90 RF: 4 acetaminophen 500 mg tablet 1,000 mg PO Q8H PRN (Reason: pain) Qty: 60 RF: 3 ibuprofen 600 mg tablet 600 mg PO TID PRNQty: 60 RF: 3 Discontinued polyethylene glycol 3350 17 gram/dose powder 238 g PO ONCE Qty: 238 RF: 0 bisacodyl [Dulcolax (bisacodyl)] 5 mg tablet,delayed release (DR/EC) 5 mg PO ONCE Qty: 4 RF: 0 Discharge Instructions Instructions: High Fiber Diet (GEN) Additional Instructions: Findings:normal colon. internal/external hemorrhoids start on Psyllium/metamucil. (1) tsp in 8 oz water daily for 2 weeks. than slowly work up to BID. Lifelong. Follow up: PCP as needed. no further scopes required Please call if you develop: fevers >101.5 Nausea or Vomiting Abdominal pain that is not transient DAY SURGERY UNIT POST COLONOSCOPY INSTRUCTIONS 1. Because there will be medication in your system for the next 24 hours, you may feel a little sleepy. Your coordination will be affected. Therefore: a. Do not drive or operate dangerous equipment for 24 hours. b. Do not drink alcohol beverages for 24 hours (not even beer). c. Plan to go home and rest for the day. 2. Generally there are no restrictions on your activity after a day or so has gone by, but you may feel a bit fatigued for a few days. 3 After you arrive home you may have a light meal and return to a normal diet as you can tolerate it without feeling sick to your stomach. 4. After surgery, you may feel pain or discomfort. This should be only transient, but if it persists please contact your doctor. 5. If there are any questions regarding the findings of your procedure, please feel free to contact your doctor. 6. If you are unable to contact your doctor with a problem, contact the hospital at [phone]. 7. Continue all your regular medications unless directed otherwise. I understand the above instructions and have no questions. Signature of Patient or Responsible Adult Escort Date/Time Name of Responsible Adult Escort Signature of Nurse Date/Time Discharge Orders Discharge Orders: Discharge Order (Routine); Ordered 03/01/19 Ordered By: Ashli Andrade DS: Diagnosis Discharge Diagnosis (1) Change in stool caliber: Status: Acute (2) External hemorrhoids without complication: Status: Acute
--- NOTE | 2019-03-01 08:07 | W.COLOREPORT ---
Date of service: 03/01/19 Time of Service: 08:07 Colonoscopy Report Date of procedure: 03/01/19 Pre-op diagnosis general: change in bowel habits/stool caliber Post-op diagnosis procedure note: same Surgeon: Ashli Andrade Anesthesia proc note operative: GETA Estimated blood loss (mL): 0 Pathology: none sent Disposition: same day Prep: Miralax/Dulcolax Retraction Time: 10 mins Procedure Description: After informed consent was obtained the patient was taken to the procedure room and placed in a left decubitous position. Monitors were applied and a time out was done. The patients name, date of , procedure, allergies to medications and metal in their body was reviewed. The patient was then sedated. Once sedated and comfortable a rectal exam was done. External exam was normal. Internal exam revealed a normal sphincter tone and no palpable masses. The scope was then introduced and retrofelexed. Grade II external and internal hemorrhoids were identified. The scope was then advanced to the cecum w/out difficulty. The TI and appendiceal orifice were identified. The prep was good. The scope was then slowly retracted over 10 minutes back into the rectum. no polyps are AVM's, or diverticula apparent. The scope was removed and the patient was woken up and taken back to Same day surgery in stable condition. The patient tolerated the procedure well and there were no immediate complications. Follow up: The patient does not require any further CE's, unless they develop changes in bowel habits or other new gastrointestinal complaints. She should start on a fiber regimine . pt was given instructions on this. Also d/w pt diverticular dx and importance of regular BM and avoiding constipation, and warning signs to look for in case of bleeding or infection. F/u w/ PCP
[2019-03-01 08:34] VITALS: BP 114/73; PULSE 64; RESP 16; TEMP 36.4; O2SAT 98
== END 2019-03-01 09:15 | disposition home or self-care (01) ==
PROVIDERS: PCP Nurse Practitioner Family; Visit Provider Surgery
PROC: 0DJD8ZZ Inspection of Lower Intestinal Tract, Via Natural or Artificial Opening Endoscopic (ICD-10-PCS; CPT 45378; principal; 2019-03-01 07:30)
DX: Z12.11 Encounter for screening for malignant neoplasm of colon (principal); Z80.0 Family history of malignant neoplasm of digestive organs; R19.4 Change in bowel habit; K64.0 First degree hemorrhoids; K64.1 Second degree hemorrhoids
CPT/HCPCS: G0121

== ENCOUNTER 2019-08-14 08:41 | Outpatient (CLI) | payer MEDICARE, BC, SELFPAY ==
[2019-08-16 00:29] LABS: COVID-19 RT-PCR Result NEGATIVE (Negative)
== END 2019-08-14 09:01 ==
PROVIDERS: PCP Nurse Practitioner Family; Visit Provider Nurse Practitioner Family
DX: Z03.818 Encounter for observation for suspected exposure to other biological agents ruled out (principal)
CPT/HCPCS: U0003

== ENCOUNTER 2020-01-16 03:18 | Outpatient (CLI) | payer MEDICARE, BC, SELFPAY ==
[2020-01-16 12:48] LABS: HCT 40.2 % (36.0-46.0); HGB 13.1 g/dL (11.2-15.7); MCHC 32.6 % (32.0-36.0); MCV 95.3 fL (80-95); MPV 9.7 fL (8.0-11.0); Platelet Count 231 10^3/uL (130-400); RBC 4.22 10^6/uL (3.93-5.22); RDW 12.7 % (11.7-14.6); RDW-SD 44.5 fL; WBC 2.86 10^3/uL (4.4-10.8)
[2020-01-16 13:11] LABS: Hemoglobin A1C 5.3 % (<5.7)
[2020-01-16 13:21] LABS: Anion Gap 7.1 mmol/L (3-11); BUN 15 mg/dL (7-18); CO2 27.9 mmol/L (21.0-32.0); CREATININE 0.74 mg/dL (0.55-1.02); Calcium 8.9 mg/dL (8.5-10.1); Calculated LDL 117 mg/dL (<100); Chloride 105 mmol/L (98-107); Cholesterol 226 mg/dL (<200); Glucose 93 mg/dL (74-106); HDL Cholesterol 95 mg/dL (40-60); Potassium 4.7 mmol/L (3.5-5.1); Sodium 140 mmol/L (136-145); TSH (W/Ref FT4) 1.76 uIU/mL (0.36-3.74); Triglyceride 74 mg/dL (<150)
== END 2020-01-16 03:38 ==
PROVIDERS: PCP Nurse Practitioner Family; Visit Provider Nurse Practitioner Family
DX: E78.5 Hyperlipidemia, unspecified (principal); R73.01 Impaired fasting glucose; R06.00 Dyspnea, unspecified
CPT/HCPCS: 36415; 80048; 80061; 85027; 83036; 84443

== ENCOUNTER 2020-02-11 02:49 | Outpatient (CLI) | payer MEDICARE, BC, SELFPAY ==
[2020-02-11 09:16] LABS: Abs Immature Grans 0.01 10^3/uL (0.0-0.06); Absolute Basophil Count 0.01 10^3/uL (0.0-0.2); Absolute Lymphocyte Count 0.79 10^3/uL (1.2-3.4); Absolute Monocyte Count 0.38 10^3/uL (0.1-0.8); Absolute Neutrophil Count 2.28 10^3/uL (1.2-6.7); Basophils % 0.3; Eosinophils % 2.8; HCT 38.7 % (36.0-46.0); Immature Grans % 0.3; Lymphocytes % 22.1; MCH 31.9 pg (27.0-33.0); MCHC 33.6 % (32.0-36.0); MCV 95.1 fL (80-95); MPV 9.4 fL (8.0-11.0); Monocytes % 10.6; Neutrophils % 63.9; Nucleated RBC 0 %; Platelet Count 231 10^3/uL (130-400); RBC 4.07 10^6/uL (3.93-5.22); RDW 12.7 % (11.7-14.6); RDW-SD 44.4 fL; WBC 3.57 10^3/uL (4.4-10.8)
== END 2020-02-11 03:09 ==
PROVIDERS: PCP Nurse Practitioner Family; Visit Provider Nurse Practitioner Family
DX: D72.819 Decreased white blood cell count, unspecified (principal)
CPT/HCPCS: 36415; 85025

== ENCOUNTER 2020-02-12 09:15 | Outpatient (CLI) | payer MEDICARE, BC, SELFPAY ==
[2020-02-13 17:53] LABS: SARS-CoV-2 RNA Not Detected (NotDetected); SARS-CoV-2 RNA Source Nasal/Nares
== END 2020-02-12 09:35 ==
PROVIDERS: PCP Nurse Practitioner Family; Visit Provider Family Medicine
DX: R06.09 Other forms of dyspnea (principal)
CPT/HCPCS: U0003

== ENCOUNTER 2020-02-15 01:19 | Outpatient (CLI) | payer MEDICARE, BC, SELFPAY ==
[2020-02-15] MEDS: Albuterol HFA 18 GM 200 PUFF INH IH (10:59)
[2020-02-15] MEDS: Inhaler, Assist Device 1 EACH MC (11:00)
--- NOTE | 2020-02-18 08:14 | W.PFT ---
Date of service: 02/15/20 Time of Service: 10:03 Pulmonary Function Test Result Interpretation Spirometry: Spirometry shows borderline mild obstructive airways disease, may be a normal variant, no bronchodilator response. The prebronchodilator effort was somewhat suboptimal. Impression Spirometry shows borderline mild obstructive airways disease, may be a normal variant, no bronchodilator response. The prebronchodilator effort was somewhat suboptimal. Clinical Correlation therefore is recommended.
== END 2020-02-15 01:39 ==
PROVIDERS: PCP Nurse Practitioner Family; Visit Provider Nurse Practitioner Family
DX: R06.00 Dyspnea, unspecified (principal)
CPT/HCPCS: 94060

== ENCOUNTER 2020-02-15 04:22 | Outpatient (CLI) | payer MEDICARE, BC, SELFPAY ==
--- NOTE | 2020-02-15 09:10 | DI.MAMMO_ITS ---
EXAM: MG MAMMO SCREENING CLINICAL HISTORY: screening,Z12.39 TECHNIQUE: Bilateral full field digital CC and MLO mammographic images were obtained with 3D tomosyn thesis and utilizing computer aided detection (CAD). COMPARISON: Available for comparison. FINDINGS: Masses/Architectural Distortion: None seen. Microcalcifications: No suspicious pleomorphic-type are seen. Skin Thickening/Nipple Retraction: None. IMPRESSION: 1. No significant interval change with no specific features of malignancy noted. 2. Unless there is more urgent need, screening mammography is recommended, as per [employer] guidelines. BI-RADS Category 1 - Negative Breast Density - Category C - Heterogeneously dense The mammogram demonstrates the patient's breast tissue is dense. Dense breast tissue is very common a nd is not abnormal but dense breast tissue can make it harder to find cancer on a mammogram. Also, de nse breast tissue may increase their breast cancer risk. This information about the result of the [facility] mogram report was provided to the patient to raise their awareness. Use this report when you speak wi th the patient about their risks for breast cancer, which includes their family history. At that time , you may recommend for more screening tests (Ultrasound or MRI) as they might be useful based on the ir risk. A negative radiographic report should not delay biopsy if a dominant or clinically suspicious mass is present. Up to ten percent of cancers are not identified on mammography. A negative report may reinforce clinical impression. Adenosis and dense breasts may obscure an underlying neoplasm. False positive reports average 6 to 10%. Patient will receive a letter notifying them of these results.
== END 2020-02-15 04:42 ==
PROVIDERS: PCP Nurse Practitioner Family; Visit Provider Nurse Practitioner Family
DX: Z12.31 Encounter for screening mammogram for malignant neoplasm of breast (principal)
CPT/HCPCS: 77063; 77067

== ENCOUNTER 2020-02-25 02:35 | Outpatient (CLI) | payer MEDICARE, BC, SELFPAY ==
[2020-02-27 00:48] LABS: Patient Race White; SARS-CoV-2 RNA Undetected (Undetected); SARS-CoV-2 Specimen Source Nasal
== END 2020-02-25 02:55 ==
PROVIDERS: PCP Nurse Practitioner Family; Visit Provider Nurse Practitioner Family
DX: Z11.59 Encounter for screening for other viral diseases (principal)
CPT/HCPCS: U0003

== ENCOUNTER 2020-02-29 02:00 | Outpatient (CLI) | payer MEDICARE, BC, SELFPAY ==
[2020-03-01 17:08] LABS: COVID-19 RT-PCR Result NEGATIVE (Negative)
== END 2020-02-29 02:20 ==
PROVIDERS: PCP Nurse Practitioner Family; Visit Provider Nurse Practitioner Family
DX: Z11.59 Encounter for screening for other viral diseases (principal)
CPT/HCPCS: U0003

== ENCOUNTER 2020-06-12 09:13 | Outpatient (CLI) | payer MEDICARE, BC, SELFPAY ==
--- NOTE | 2020-06-12 08:30 | DI.RAD_ITS ---
EXAM: XR WRIST RT COMPLETE CLINICAL HISTORY: new pain. TECHNIQUE: 2D digital imaging was performed. COMPARISON: CR XR WRIST RT COMPLETE from 01/11/2019 FINDINGS: Again noted is a fixation plate along the volar aspect distal radius with healed fracture site at thi s level. No radiographic evidence of osteomyelitis. No hardware loosening. Narrowing of the radio carpal joint is noted and there is widening of the interosseous distance between the scaphoid and carlos ate bones again noted. This implies abnormality of the interosseous ligament at this level. Degener ative changes at the articulation between the thumb metacarpal and trapezium are again noted. IMPRESSION: DATA REPOSITORY: RADIATION DOSE DELIVERED:
== END 2020-06-12 09:14 | disposition home or self-care (01) ==
LOC: DIORS 09:14
PROVIDERS: PCP Nurse Practitioner Family; Visit Provider Physician Assistant Surgical
DX: M25.531 Pain in right wrist (principal); Z87.81 Personal history of (healed) traumatic fracture; M19.031 Primary osteoarthritis, right wrist
CPT/HCPCS: 99213; 73110

== ENCOUNTER 2021-01-19 18:59 | Outpatient (REF) | payer MEDICARE, BC, SELFPAY | END 2021-01-19 19:00 | disposition home or self-care (01) | LOC: LBN 18:59 | PROVIDERS: PCP Nurse Practitioner Family; Visit Provider Nurse Practitioner Family | DX: N39.0 Urinary tract infection, site not specified (principal) | CPT/HCPCS: 87086 ==

== ENCOUNTER 2021-03-05 02:18 | Outpatient (CLI) | payer MEDICARE, BC, SELFPAY ==
--- NOTE | 2021-03-05 08:15 | DI.DEXA_ITS ---
Exam(s) XR DEXA BONE DENSITY W/WO DILLAN EXAM: XR DEXA BONE DENSITY W/WO DILLAN CLINICAL HISTORY: Osteopenia,screening for osteoporosis in postmenopausal woman,z78.0 TECHNIQUE: Routine DEXA evaluation of the lumbar spine, hip, or forearm. COMPARISON: Prior DEXA scan December 2017 FINDINGS: Performed on a [employer] unit. Lateral image: No compression fracture evident. Lumbar Spine total T-score: -1.3. Prior 2018 reading was -0.9 Hip total T-score:-1.7. Prior 2018 reading was -1.5 Independent reading at the level of the femoral neck yields at T-score of -2.6. Forearm total T-score: IMPRESSION: Bone mineral density measures in the osteopenia-osteoporosis range. Femoral neck reading is in the l ow osteoporosis range. Fracture risk is moderate-high Note: Any spine fracture indicates 5x risk for subsequent spine fracture and 2x risk for subsequent h ip fracture. World Health Organization criteria for BMD interpretation classify patients: Normal...... T- Score at or above -1.0 Osteopenic... T- Score between -1.0 and -2.5 Osteoporosis... T-Score at or below -2.5
--- NOTE | 2021-03-05 08:37 | DI.MAMMO_ITS ---
Exam(s) MAMMO SCREENING EXAM: MAMMO SCREENING CLINICAL HISTORY: screening,z12.39. TECHNIQUE: Bilateral full field digital CC and MLO mammographic images were obtained with 3D tomosyn thesis and utilizing computer aided detection (CAD). COMPARISON: Prior mammograms dating back to 2011, the most recent being January 2020. Significant family history. Both her mother and sister have been diagnosed with breast cancer. FINDINGS: Fibroglandular tissue is again noted be moderately dense, this somewhat decreasing the sensitivity of the mammogram for finding hidden underlying lesions. There are no obvious new spiculated masses nor malignant appearing microcalcification groups. There is no significant architectural distortion nor skin thickening-retraction. IMPRESSION: Moderately dense fibroglandular tissue. No obvious radiographic evidence of malignancy nor significa nt change compared to prior studies listed above. BI-RADS Category 1 - Negative Breast Density - Category C - Heterogeneously dense Breast density Category C or D implies that the patient has dense breast tissue. Dense breast tissue can make it harder to find cancer on a mammogram. Dense breast tissue is also associated with an incr eased risk of breast cancer. This information about the result of the mammogram report was provided to the patient to raise their awareness. Use this report when you speak with the patient about their risks for breast cancer, which includes their family history. At that time, you may recommend additional screening tests (Ultrasoun d or MRI) as these tests may add significant information. A negative radiographic report should not delay biopsy if a dominant or clinically suspicious mass is present. Up to ten percent of cancers are not identified on mammography. A negative report may reinforce clinical impression. Adenosis and dense breasts may obscure an underlying neoplasm. False positive reports average 6 to 10%. Patient will receive a letter notifying them of these results.
== END 2021-03-05 02:38 ==
PROVIDERS: PCP Nurse Practitioner Family; Visit Provider Nurse Practitioner Family
DX: Z12.31 Encounter for screening mammogram for malignant neoplasm of breast (principal); M85.89 Other specified disorders of bone density and structure, multiple sites; Z78.0 Asymptomatic menopausal state; R92.8 Other abnormal and inconclusive findings on diagnostic imaging of breast; M81.0 Age-related osteoporosis without current pathological fracture
CPT/HCPCS: 77063; 77067; 77080

== ENCOUNTER 2021-03-25 00:51 | Outpatient (CLI) | payer MEDICARE, BC, SELFPAY ==
[2021-03-26 15:45] LABS: COVID-19 RT-PCR UVMMC Result Positive (Negative)
== END 2021-03-25 00:52 | disposition home or self-care (01) ==
LOC: LBO 00:51
PROVIDERS: PCP Nurse Practitioner Family; Visit Provider Nurse Practitioner Family
DX: Z20.822 Contact with and (suspected) exposure to COVID-19 (principal)
CPT/HCPCS: U0003; U0005

== ENCOUNTER 2021-09-02 16:01 | Outpatient (REF) | payer MEDICARE, SELFPAY ==
[2021-09-02 21:31] LABS: Bilirubin Negative (Negative); Blood Negative (Negative); Clarity Clear (Clear); Glucose Negative (Negative); Ketones Negative (Negative); Leukocyte Esterase Negative (Negative); Nitrite Negative (Negative); Urobilinogen 0.2 EU/dL (Up TO 0.2); pH 5.5 (5-8)
== END 2021-09-02 16:02 | disposition home or self-care (01) ==
LOC: LBN 16:01
PROVIDERS: PCP Nurse Practitioner Family; Visit Provider Physician Assistant
DX: R39.89 Other symptoms and signs involving the genitourinary system (principal)
CPT/HCPCS: 81003

== ENCOUNTER → 2021-09-04 00:21 | Outpatient (CLI) | payer MEDICARE, SELFPAY ==
--- NOTE | 2021-09-04 09:47 | DI.US_ITS ---
Exam(s) US PELVIS TRANSVAGINAL EXAM: US PELVIS TRANSVAGINAL CLINICAL HISTORY: lower abdominal discomfort,POSTMENOPAUSAL,LLQ PAIN,R10.32. TECHNIQUE: Transabdominal and transvaginal pelvic ultrasound was performed using standard protocol. COMPARISON: No exams were available for comparison FINDINGS: KIDNEYS: Kidneys are symmetric in size. No evidence of renal calculi. No evidence of hydronephrosis. No renal mass or cyst identified. UTERUS: Position: Retroverted Size: 4.1 long by 2.7 AP by 4.1 transverse cm Endometrium: 0.2 cm. Normal for patient's menstrual status. There is a small amount of fluid seen wit hin the endometrial canal. Myometrium: There is a calcified area is seen in the body of the uterus which may represent a uterine fibroid. Cervix: Unremarkable. OVARIES: The left ovary was not visualized transabdominally or transvaginally. Right: 1.3 x 1.5 x 1.1 cm Cyst or mass: No suspicious cystic or solid masses. DOPPLER: Color: There is vascularity seen to the right ovary.. CUL-DE-SAC: Free fluid: None. Other: None. IMPRESSION: 1. Normal limited sonographic appearance of the kidneys. 2. There is fluid seen within the endometrial canal. The endometrial stripe is within normal limits. 3. Calcified area in the body of the uterus which may represent a degenerating fibroid. 4. The left ovary was not visualized transabdominally or transvaginally. No left adnexal mass is see n. The right ovary appeared grossly unremarkable. DATA REPOSITORY:
== END ==
PROVIDERS: PCP Nurse Practitioner Family; Visit Provider Physician Assistant
DX: R10.32 Left lower quadrant pain (principal); N85.8 Other specified noninflammatory disorders of uterus
CPT/HCPCS: 76830; 76856

== ENCOUNTER 2022-02-12 01:36 | Outpatient (CLI) | payer MEDICARE, SELFPAY ==
[2022-02-12 12:57] LABS: Anion Gap 8.8 mmol/L (3-11); BUN 17 mg/dL (7-18); CO2 27.2 mmol/L (21.0-32.0); CREATININE 0.8 mg/dL (0.55-1.02); Calcium 9.3 mg/dL (8.5-10.1); Calculated LDL 109 mg/dL (<100); Chloride 103 mmol/L (98-107); Cholesterol 219 mg/dL (<200); Estimated GFR 79.71 (mL/min/1.73m2); Glucose 98 mg/dL (74-106); HDL Cholesterol 96 mg/dL (40-60); Potassium 4.4 mmol/L (3.5-5.1); Sodium 139 mmol/L (136-145); Triglyceride 72 mg/dL (<150)
[2022-02-12 17:14] LABS: Vitamin D 25 Total 39.3 ng/mL (30-100)
== END 2022-02-12 01:37 | disposition home or self-care (01) ==
LOC: LOS 01:37
PROVIDERS: PCP Nurse Practitioner Family; Visit Provider Nurse Practitioner Family
DX: E78.5 Hyperlipidemia, unspecified (principal); M85.852 Other specified disorders of bone density and structure, left thigh
CPT/HCPCS: 36415; 80048; 80061; 82306

== ENCOUNTER → 2022-03-04 01:07 | Outpatient (CLI) | payer MEDICARE, SELFPAY ==
--- NOTE | 2022-03-04 06:30 | DI.MAMMO_ITS ---
Exam(s) MAMMO SCREENING EXAM: MAMMO SCREENING CLINICAL HISTORY: screening,z12.39 TECHNIQUE: Bilateral full field digital CC and MLO mammographic images were obtained with 3D tomosyn thesis and utilizing computer aided detection (CAD). COMPARISON: Available for comparison. FINDINGS: Masses/Architectural Distortion: There is a focus of asymmetric breast tissue in the supra-areolar re gion on the left MLO view which is more prominent compared to the prior examination. It may represen t overlying fibroglandular tissue. Microcalcifications: No suspicious pleomorphic-type are seen. Skin Thickening/Nipple Retraction: None. IMPRESSION: 1. Small area of breast asymmetry in the supra-areolar region of the left breast on the MLO view. 2. This area should be further evaluated with a spot compression view and a limited left breast ultra sound. BI-RADS Category 0 - Assessment Incomplete: Need additional imaging evaluation Breast Density - Category C - Heterogeneously dense Breast density category C or D implies that the patient has dense breast tissue. Dense breast tissue is very common and is not abnormal but dense breast tissue can make it harder to find cancer on a ma mmogram. Also, dense breast tissue may increase their breast cancer risk. This information about the result of the mammogram report was provided to the patient to raise their awareness. Use this report when you speak with the patient about their risks for breast cancer, which includes their family hist ory. At that time, you may recommend for more screening tests (Ultrasound or MRI) as they might be us eful based on their risk. A negative radiographic report should not delay biopsy if a dominant or clinically suspicious mass is present. Up to ten percent of cancers are not identified on mammography. A negative report may reinforce clinical impression. Adenosis and dense breasts may obscure an underlying neoplasm. False positive reports average 6 to 10%. Patient will receive a letter notifying them of these results.
== END ==
PROVIDERS: PCP Nurse Practitioner Family; Visit Provider Nurse Practitioner Family
DX: Z12.31 Encounter for screening mammogram for malignant neoplasm of breast (principal); R92.8 Other abnormal and inconclusive findings on diagnostic imaging of breast
CPT/HCPCS: 77063; 77067

== ENCOUNTER → 2022-03-11 02:12 | Outpatient (CLI) | payer MEDICARE, SELFPAY ==
--- NOTE | 2022-03-11 08:45 | DI.MAMMO_ITS ---
Exam(s) MG MAMMO SCREEN CALL BACK UNI US BREAST LT LIMITED EXAM: MG MAMMO SCREEN CALL BACK UNI CLINICAL HISTORY: SMALL AREA OF ASYMMETRY SUPRA-AREOLAR REGION, LT BREAST. TECHNIQUE: Craniocaudal and mediolateral oblique Full Field Digital Mammography views of the left br east with Computer Aided Diagnosis followed by Tomosynthesis and left breast ultrasound. COMPARISON: Comparison is made with prior examinations. FINDINGS: Mammography/Tomosynthesis: Masses/Architectural Distortion: The area of concern is not concerning on the additional views. No m asses or areas of architectural distortion are identified. Microcalcifictions: No suspicious pleomorphic-type are seen. Skin Thickening/Nipple Retraction: None. Limited left breast US: Echotexture: Normal appearance of the glandular tissue. Shadowing: No suspicious foci. Cyst: None. Solid lesions: None seen. Ductal dilation: None. IMPRESSION: 1. No evidence of malignancy is noted. 2. A six-month follow-up left mammogram is recommended for re-evaluation. 3. The findings were discussed with the patient on the date of the examination. BI-RADS Category 3 - 6 month - Probably Benign Finding: Recommend follow-up imaging in 6 months Breast Density - Category C - Heterogeneously dense Breast density Category C or D implies that the patient has dense breast tissue. Dense breast tissue can make it harder to find cancer on a mammogram. Dense breast tissue is also associated with an incr eased risk of breast cancer. This information about the result of the mammogram report was provided to the patient to raise their awareness. Use this report when you speak with the patient about their risks for breast cancer, which includes their family history. At that time, you may recommend additional screening tests (Ultrasoun d or MRI) as these tests may add significant information. A negative radiographic report should not delay biopsy if a dominant or clinically suspicious mass is present. Up to ten percent of cancers are not identified on mammography. A negative report may reinforce clinical impression. Adenosis and dense breasts may obscure an underlying neoplasm. False positive reports average 6 to 10%. Patient will receive a letter notifying them of these results.
== END ==
PROVIDERS: PCP Nurse Practitioner Family; Visit Provider Nurse Practitioner Family
DX: R92.8 Other abnormal and inconclusive findings on diagnostic imaging of breast (principal); Z12.31 Encounter for screening mammogram for malignant neoplasm of breast
CPT/HCPCS: 76642; 77063; 77067

== ENCOUNTER 2022-04-16 14:31 | Outpatient (CLI) | payer MEDICARE, SELFPAY ==
--- NOTE | 2022-04-16 14:30 | RT.EKG_ITS ---
APPROVED REPORT Exam: Resting ECG Reason for Exam: c/o chest pain and LT arm pain Patient Location: O HR:69 bpm ECG Measurements Heart Rate 69 AXIS NH 187 P 13 QRSd 99 QRS 36 QT 398 T 22 QTc 427 Conclusion Sinus rhythm...normal P axis, V-rate 50- 99 Normal Electrocardiogram
== END 2022-04-16 14:32 | disposition home or self-care (01) ==
LOC: DI.CM 14:31
PROVIDERS: PCP Nurse Practitioner Family; Visit Provider Nurse Practitioner Family
DX: R07.9 Chest pain, unspecified (principal)
CPT/HCPCS: 93010

== ENCOUNTER 2022-04-16 15:11 | Outpatient (CLI) | payer MEDICARE, SELFPAY ==
--- NOTE | 2022-04-16 14:45 | DI.RAD_ITS ---
Exam(s) XR KNEE RT 4V AP,LAT,VINAY,PAT EXAM: XR KNEE RT 4V AP,LAT,VINAY,PAT CLINICAL HISTORY: right knee pain M25.361 INSTABILITY RT KNEE M25.561 PAIN. TECHNIQUE: 2D digital imaging was performed of the right knee. Five views obtained. Merchant, AP, la teral and PA tunnel views were obtained. COMPARISON: No exams were available for comparison FINDINGS: BONES: No acute fracture is present. No bony destructive lesion is seen. There is a small enthesophyt e at the superior patella. JOINTS: The knee is normally aligned. No joint effusion is seen. SOFT TISSUE: Normal. IMPRESSION: Unremarkable radiographs of the right knee. DATA REPOSITORY: RADIATION DOSE DELIVERED:
== END 2022-04-16 15:31 ==
LOC: DI 15:11
PROVIDERS: PCP Nurse Practitioner Family; Visit Provider Nurse Practitioner Family
DX: M25.361 Other instability, right knee (principal); M25.561 Pain in right knee
CPT/HCPCS: 73564

== ENCOUNTER 2022-06-04 11:03 | Day surgery (SDC) | payer MEDICARE, SELFPAY ==
[2022-06-04 12:05] VITALS: BP 126/77; PULSE 60; RESP 16; TEMP 36.3; O2SAT 96
--- NOTE | 2022-06-04 12:09 | W.ANESPRE ---
General Info Date of Service Date Performed: 06/04/22 Height: 5 ft 2 in Weight: 66.3 kg Body Mass Index (BMI): 26.7 Surgical Procedure: Operation Date: 06/04/22 12:55 Proposed Procedure Side Surgeon p Cataract Extraction with IOL Implant Right Tres Farmer MD Meds Allergies and Home Medications Allergies Allergy/AdvReac Type Severity Reaction Status Date / Time No Known Allergies Allergy Unverified 06/04/22 11:58 Home Medication Medication Instructions Recorded ibuprofen 600 mg tablet 600 mg PO TID PRN #60 tabs 10/19/18 fluticasone propionate 50 2 spray intranasal DAILY PRN 02/04/22 mcg/actuation nasal allergy symptoms #36.4 mL spray,suspension (Allergy Relief (fluticasone)) Current Visit Medications: Current Medications Generic Name Dose Route Start Last Admin Trade Name Freq PRN Reason Stop Dose Admin Acetaminophen 1,000 mg 06/04/22 06:00 Acetaminophen 500 Mg Tab PO Q4H PRN PRN Miscellaneous Medication 0 ml 06/04/22 06:00 Tropicam./Phenyleph. (1/2.5%) 5 Ml Btl OD DIRECTED [facility] Miscellaneous Medication 0 ml 06/04/22 06:00 Prednisolone 1%, Moxifloxacin 0.5%, Nepafenac 0.1% 5ml Btl OD DIRECTED [facility] Tetracaine HCl 0 ml 06/04/22 06:00 Tetracaine 0.5% 4 Ml Btl OD DIRECTED [facility] Active Problems Active Problems: Problem Status Onset Code Cortical cataract of right eye H26.9 Nuclear sclerotic cataract of right eye H25.11 Hyperlipidemia E78.5 Insomnia G47.00 Osteopenia of left hip ~12/2017 M85.852 Allergic rhinitis J30.9 Medical History Medical History COVID-19 virus infection (~02/2021) GERD (gastroesophageal reflux disease) Surgical History Surgical History S/P colonoscopy (03/01/19) S/P ORIF (open reduction internal fixation) fracture (10/19/18) of Left and Right Distal Radius Fractures S/P tonsillectomy and adenoidectomy Tobacco Smoking/Tobacco Use Status: Former Tobacco Use Passive smoking exposure: No Second hand exposure: No Alcohol Alcohol Intake: current Alcohol intake frequency: a few times a week Alcohol type: wine and hard liquor Substance Use Substance use: Never Substance use type: does not use Prental History History 3 Para 2 Hx # Term Pregnancies Multiple births 1 Hx # Pregnancies Ectopic pregnancies AB induced 1 Hx Number of Living Children 3 AB spontaneous Vital Signs and Lab Results Vital Signs Most Recent Vital Signs in EMR: Most Recent Vital Signs Temp Pulse Resp BP Pulse Ox 36.3 C L 60 16 126/77 96 06/04/22 12:05 06/04/22 12:05 06/04/22 12:05 06/04/22 12:05 06/04/22 12:05 Lab Results Blood Type / Crossmatch: No Data to Display Complete Blood Count: No Data to Display Complete Metabolic Panel: No Data to Display Liver Function Panel: No Data to Display Coagulation Panel: No Data to Display Cardiac Panel: No Data to Display Arterial Blood Gas: No Data to Display Venous Blood Gas: No Data to Display Pancreas Panel: No Data to Display Thyroid Panel: No Data to Display Infectious Disease: No Data to Display Blood Cultures: No Data to Display Toxicology Panel: No Data to Display Imaging and Studies Imaging and Studies Study information below may be from another EMR and interpreted by another provider. Please see original notes in EMR for more complete details. EKG Summary: 04/19 Conclusion Sinus rhythm...normal P axis, V-rate 50- 99 Normal Electrocardiogram Pulmonary Function Summary: 02/14 Pulmonary Function Test Result Interpretation Spirometry: Spirometry shows borderline mild obstructive airways disease, may be a normal variant, no bronchodilator response. The prebronchodilator effort was somewhat suboptimal. Impression Spirometry shows borderline mild obstructive airways disease, may be a normal variant, no bronchodilator response. The prebronchodilator effort was somewhat suboptimal. Clinical Correlation therefore is recommended. Anesthesia Assessment and Plan Anesthesia History Personal History: No History of Anesthesia Complications Family History: No Family History of Anesthesia Complications Exercise Tolerance Exercise Tolerance: Metabolic Equivalents>4 Pertinent Negatives Pertinent Negatives: No Symptoms of GERD Cardiac & Pulmonary Exam Cardiac Exam: Normal S1/S2 Heart Sounds Pulmonary Exam: Clear Bilateral Breath Sounds Implantable Cardiac Device Does patient have a Pacemaker or an ICD?: No Airway Exam Known Difficult Airway: No Mallampati Class: 3 Mouth Opening: Normal (> 3cm) Thyromental Distance: Greater than 3 cm Neck Range of Motion: Full ROM Neck Circumference: Normal Teeth Condition: Normal Dentition ASA Classification ASA Score: ASA 2 Emergency Case?: No NPO Status NPO Status: NPO Clears >2 hours, Solids >8 hours Anesthesia Plan Resuscitation Status: Full Code Anesthesia Technique: MAC Anesthesia Airway Planned: Natural Airway Monitors Used: Standard Monitors Preoperative Comments:: Anxious. Would like MKO
[2022-06-04] MEDS: Tropicam./Phenyleph. (1/2.5%) 5 ML BTL OD ×3 (12:10→12:24)
[2022-06-04 12:12] VITALS: BMI 26.7
[2022-06-04] MEDS: Balanced Salt Soln.-PLUS 500 ML BAG (12:58)
[2022-06-04] MEDS: Tetracaine 0.5% 4 ML BTL OD (12:58)
[2022-06-04] MEDS: Lidocaine 1% Pres-Free 5 ML VIAL (12:59)
[2022-06-04] MEDS: Duovisc Viscoelastic System EACH 1 EACH (12:59)
[2022-06-04] MEDS: Phenylephrine/Lidocaine (15/10) MG/ML 1 ML VIAL (13:00)
[2022-06-04] MEDS: Povidone-Iodine Ophth 30 ML BTL (13:00)
[2022-06-04 13:15] VITALS: BP 116/79; PULSE 61; RESP 16; TEMP 36.2; O2SAT 96
--- NOTE | 2022-06-04 13:17 | W.PM.DSUDISC ---
Date of service: 06/04/22 Time of Service: 13:17 Discharge Plan Disposition Patient Disposition: Home Discharge Details Attending Provider: Tres Farmer Primary Care Provider: Felipa Mensah Home Meds and New Rx's Prescriptions: No Action fluticasone propionate [Allergy Relief (fluticasone)] 50 mcg/actuation spray,suspension 2 spray DONALDO DAILY PRN (Reason: allergy symptoms) Qty: 36.4 4RF Rx Instructions: administer into each nostril ibuprofen 600 mg tablet 600 mg PO TID PRNQty: 60 3RF Discharge Instructions Stand Alone Forms: Post-op Topical Cataract, Sheree Leach (DSU) Discharge Orders Discharge Orders: Discharge Order (Routine); Ordered 06/04/22 Ordered By: Tres Farmer DS: Diagnosis Discharge Diagnosis (1) Cortical cataract of right eye: Status: Resolved (2) Nuclear sclerotic cataract of right eye: Status: Resolved
--- NOTE | 2022-06-04 13:18 | ROE_ITS ---
Date of service: 06/04/22 Time of Service: 13:18 Operative Note Operative Note DATE OF PROCEDURE: 06/04/22 PRE-OP DIAGNOSIS: Nuclear/cortical cataract, right eye POST-OP DIAGNOSIS: same PROCEDURE: Cataract extraction using phacoemulsification with intraocular lens implant, right eye SURGEON: Tres Farmer ANESTHESIA TYPE: Local By Surgeon and MAC Refer to Anesthesia Record ESTIMATED BLOOD LOSS: 0 PATHOLOGY: none sent COMPLICATIONS: None Patient was transported to: same day Patient's condition: stable Implants: Collin Clareon [id number] Indications: Progressive decreased vision due to cataract, right eye Procedure Description: CATARACT SURGERY OPERATIVE REPORT PREOPERATIVE DIAGNOSIS: Nuclear/cortical cataract, right eye POSTOPERATIVE DIAGNOSIS: Same OPERATION: Cataract extraction using phacoemulsification with posterior chamber intraocular lens implant, right eye. IOL: IOL [employer] Developer/Model: Collin Clareon [id number] IOL Power: + 21.0 diopters IOL Serial Number: [id number] Optic Diameter: 6.0mm Haptic/Overall Diameter: 13.0mm PHACO INFO: CollinElla Healthurion Vision System with OZil and Active Fluidics Cumulative Dispersed Energy (CDE): 11.06 seconds SURGEON: Tres Farmer MD, ROQUE ANESTHESIA: Monitored Anesthesia Care (MAC), with local sub-tenon's anesthetic infiltration COMPLICATIONS: None SPECIMENS: None INDICATIONS FOR PROCEDURE: The patient is a 72-year-old lady with history of diminished visual acuity in her right eye secondary to the development of nuclear/cortical cataract. She is significantly symptomatic that she desires cataract surgery and attempt to improve and maximize her vision. The option of cataract surgery was offered to the patient and she wished to proceed. PROCEDURE: The correct surgical eye was identified and marked as the right eye and the pupil was dilated in the preoperative area using mydriatics and cycloplegics. The dilated pupil size was 7.0 mm. Oral sedation was administered in the form of an Imprimis MKO Melt (midazolam 3mg/ketamine 25mg/ondansetron 2mg). The patient was brought to the operating room where cardiopulmonary monitoring was instituted and surgical time-out was performed, confirming the correct operative eye and IOL power. Topical anesthesia was administered and ophthalmic povidone-iodine 5% was instilled into the conjunctival fornices. Lidocaine gel was applied to the cornea and the keron-ocular area was prepped with Betadine 10% solution and draped in the usual sterile fashion for intraocular surgery, including an aperture drape. A Tegaderm transparent film dressing was cut in half and used to cover the lashes and lid margins. Care was taken to sequester the lashes and lid margins under the Tegaderm dressing. A lid speculum was placed between the lids of the operative eye and the Cortez-Cynthia operating microscope was maneuvered into position. Tyrel scissors were then used to make a conjunctival buttonhole approximately 6mm posterior to the limbus in the inferonasal quadrant. Blunt dissection was carried out to expose bare sclera, and a blunt-tipped sub-tenon?s anesthesia cannula was introduced and passed posteriorly along the globe where non- preserved plain lidocaine was injected into posterior sub-Tenon?s space. A sideport knife was used to make a paracentesis port inferiortemporally. Intraocular phenylephrine/lidocaine was injected into the anterior chamber. The anterior chamber was then filled with viscoelastic. A keratome knife was used to construct a two--plane near-clear corneal tunnel extending 2.0mm into clear cornea in the superiortemporal position.. A flap was raised on the anterior capsule and capsulorhexis forceps were used to complete a continuous curvilinear capsulorhexis of 5.0 mm. Balanced salt solution was then used to perform cortical cleaving hydrodiss ection and nuclear hydrodelineation until the lens could be freely rotated within the capsular bag. The lens nucleus was then disassembled and removed within the capsular bag and iris plane using phacoemulsification. Residual cortical material was removed using the I/A handpiece. The posterior capsule was carefully polished to remove as much residual lens epithelial cells as safely possible. The capsular bag was then inflated and the anterior chamber deepened with viscoelastic. The lens implant described above was inserted into the capsular bag using the Collin Autonome Injector. A Kuglen hook was used to dial the IOL into position. Residual viscoelastic was then removed first from posterior to the IOL, then from the anterior chamber using the I/A handpiece. The lens implant was noted to center nicely within the capsular bag. The incisions were stromally hydrated, and the anterior chamber was reformed using BSS. Then 0.5cc of moxifloxacin 1.0mg/ml were injected into the capsular bag and anterior chamber. The incisions were checked with a Weck spear and found to be secure. Several drops of ophthalmic povidone-iodine 5% were then applied to the eye followed by two drops of Imprimis combination prednisolone/moxifloxacin/nepafenac solution. The drapes were removed and a clear plastic protective eye shield was placed over the eye. The patient was then returned to Same Day Surgery in stable condition.
[2022-06-04 13:42] VITALS: BP 111/77; PULSE 55; RESP 16; TEMP 36.3; O2SAT 96
--- NOTE | 2022-06-04 13:45 | W.ANESPOSTOP ---
Postoperative Evaluation Date, Time and Location Date Performed: 06/04/22 Time Performed: 13:45 Patient Location: Day Surgery Unit Vital Signs Most Recent Imported Vital Signs: Most Recent Vital Signs Temp Pulse Resp BP Pulse Ox 36.3 C L 55 L 16 111/77 96 06/04/22 13:42 06/04/22 13:42 06/04/22 13:42 06/04/22 13:42 06/04/22 13:42 Pain Score Most Recent Pain Score: Most Recent Pain Score Pain Level 0 06/04/22 13:42 Assessment Mental Status: Awake (Alert & Oriented to Patient Baseline) Airway and Respiratory Function: Patent airway with normal (patient baseline) respiratory exam Cardiovascular Function: Hemodynamically Stable Hydration Status: Adequately Hydrated Nausea & Vomiting: No Nausea or Vomiting Pain: Pt. Denies Any Pain Peripheral Nerve Block: Patient did not receive a nerve block
== END 2022-06-04 13:45 | disposition home or self-care (01) ==
LOC: SUR 11:04
PROVIDERS: PCP Nurse Practitioner Family; Visit Provider Ophthalmology
PROC: (CPT 66984; principal; 2022-06-04 12:45)
DX: H25.11 Age-related nuclear cataract, right eye (principal)
CPT/HCPCS: 66984; V2632

== ENCOUNTER 2022-09-16 01:39 | Outpatient (CLI) | payer MEDICARE, SELFPAY ==
--- NOTE | 2022-09-16 10:06 | DI.MAMMO_ITS ---
Exam(s) MG MAMMO DIAGNOSTIC UNI EXAM: MG MAMMO DIAGNOSTIC UNI CLINICAL HISTORY: 6 month follow up, abnl mammo lt, Z09, R92.8 TECHNIQUE: Left cc and MLO mammogram images were performed [facility] with CAD system, tomosynthesis and C-view imaging. COMPARISON: MG Screening Bilat Mammo from 07/22/2014 MG L. Spot - Same Day from 08/06/2014 MG Screening Bilat Mammo from 10/02/2015 MG MG mammo screening from 01/03/2018 MG MG MAMMO SCREENING from 02/01/2019 MG MG MAMMO SCREENING from 03/05/2021 MG MG MAMMO SCREENING from 03/04/2022 MG MG MAMMO SCREEN CALL BACK UNI from 03/11/2022 FINDINGS: The left breast is composed of scattered fibroglandular densities, Breast Density category B. No suspicious masses or suspicious microcalcifications are seen. No skin thickening or abnormal axillary lymph nodes are seen. The previously questioned area of nodularity is not seen on today's exam IMPRESSION: BI-RADS Category 1, Negative mammogram Bilateral screening mammography is recommended, due in 6 months. Breast Density - Category B, scattered fibroglandular densities. A negative radiographic report should not delay biopsy if a dominant or clinically suspicious mass is present. Up to ten percent of cancers are not identified on mammography. A negative report may reinforce clinical impression. Adenosis and dense breasts may obscure an underlying neoplasm. False positive reports average 6 to 10%. Patient will receive a letter notifying them of these results.
== END 2022-09-16 01:59 ==
LOC: DI 01:39
PROVIDERS: PCP Nurse Practitioner Family; Visit Provider Nurse Practitioner Family
DX: Z09 Encounter for follow-up examination after completed treatment for conditions other than malignant neoplasm; R92.8 Other abnormal and inconclusive findings on diagnostic imaging of breast
CPT/HCPCS: 77061; 77065; G0279

== ENCOUNTER 2023-02-01 00:56 | Outpatient (CLI) | payer MEDICARE, SELFPAY ==
[2023-02-01 12:46] LABS: Hemoglobin A1C 5.4 % (<5.7)
[2023-02-01 12:49] LABS: Anion Gap 9.9 mmol/L (3-11); BUN 14 mg/dL (7-18); CO2 24.1 mmol/L (21.0-32.0); CREATININE 0.8 mg/dL (0.55-1.02); Calcium 9.4 mg/dL (8.5-10.1); Calculated LDL 96 mg/dL (<100); Chloride 103 mmol/L (98-107); Cholesterol 206 mg/dL (<200); Estimated GFR 79.22 (mL/min/1.73m2); Glucose 95 mg/dL (74-106); HDL Cholesterol 103 mg/dL (40-60); Potassium 4.1 mmol/L (3.5-5.1); Sodium 137 mmol/L (136-145); Triglyceride 37 mg/dL (<150)
[2023-02-02 11:12] LABS: Hepatitis C Ab w Rflx HCV PCR Negative (Negative)
== END 2023-02-01 00:57 | disposition home or self-care (01) ==
LOC: LOS 00:56
PROVIDERS: PCP Nurse Practitioner Family; Visit Provider Nurse Practitioner Family
DX: Z00.00 Encounter for general adult medical examination without abnormal findings (principal); R73.01 Impaired fasting glucose
CPT/HCPCS: 36415; 80048; 80061; 86803; 83036

== ENCOUNTER → 2023-03-10 01:29 | Outpatient (CLI) | payer MEDICARE, SELFPAY ==
--- NOTE | 2023-03-10 08:45 | DI.MAMMO_ITS ---
Exam(s) MAMMO SCREENING EXAM: MAMMO SCREENING CLINICAL HISTORY: screening,Z12.39 TECHNIQUE: Bilateral full field digital CC and MLO mammographic images were obtained with 3D tomosyn thesis and utilizing computer aided detection (CAD). COMPARISON: Available for comparison. FINDINGS: Masses/Architectural Distortion: There is a new 6 mm mildly spiculated nodule in the lateral left seth ast on the craniocaudad view. It is 4.5 cm from the nipple. Microcalcifications: No suspicious pleomorphic-type are seen. Skin Thickening/Nipple Retraction: None. IMPRESSION: 1. New 6 mm nodule in the lateral left breast on the CC view. 2. A spot compression views requested for further evaluation. Complete left breast ultrasound is rec ommended at that time. BI-RADS Category 0 - Assessment Incomplete: Need additional imaging evaluation Breast Density - Category C - Heterogeneously dense Breast density category C or D implies that the patient has dense breast tissue. Dense breast tissue is very common and is not abnormal but dense breast tissue can make it harder to find cancer on a ma mmogram. Also, dense breast tissue may increase their breast cancer risk. This information about the result of the mammogram report was provided to the patient to raise their awareness. Use this report when you speak with the patient about their risks for breast cancer, which includes their family hist ory. At that time, you may recommend for more screening tests (Ultrasound or MRI) as they might be us eful based on their risk. A negative radiographic report should not delay biopsy if a dominant or clinically suspicious mass is present. Up to ten percent of cancers are not identified on mammography. A negative report may reinforce clinical impression. Adenosis and dense breasts may obscure an underlying neoplasm. False positive reports average 6 to 10%. Patient will receive a letter notifying them of these results.
--- NOTE | 2023-03-10 14:41 | DI.DEXA_ITS ---
Exam(s) XR DEXA BONE DENSITY W/WO DILLAN EXAM: XR DEXA BONE DENSITY W/WO DILLAN CLINICAL HISTORY: re-eval osteopenia,SCREENING FOR OSTEOPOROSIS IN POSTMENOPAUSAL WOMAN,Z78.0 TECHNIQUE: COMPARISON: CR XR DEXA BONE DENSITY W/WO DILLAN from 03/05/2021 FINDINGS: Lateral Spine Image: Unremarkable. No compression deformities identified. Left hip: Total T-Score: -1.8. This compares to -1.8 on the prior examination from 2020. Total Z-Score: -0.2 T- and Z-scores: Findings are consistent with osteopenia. There is osteoporosis in the femoral neck with a T-score of -2.8. Lumbar Spine: Total T-Score: -1.2. This compares to -1.3 on the prior examination from 2020. Total Z-Score: 1.0 T- and Z-scores: Findings are consistent with osteopenia. IMPRESSION: Osteoporosis seen in the left femoral neck.
== END ==
PROVIDERS: PCP Nurse Practitioner Family; Visit Provider Nurse Practitioner Family
DX: Z12.31 Encounter for screening mammogram for malignant neoplasm of breast (principal); Z13.820 Encounter for screening for osteoporosis; Z78.0 Asymptomatic menopausal state; M81.0 Age-related osteoporosis without current pathological fracture
CPT/HCPCS: 77063; 77067; 77080

== ENCOUNTER → 2023-03-23 00:46 | Outpatient (CLI) | payer MEDICARE, SELFPAY ==
--- NOTE | 2023-03-23 | DI.US_ITS ---
Exam(s) MAMMO SCREEN CALL BACK UNI US BREAST LT COMPLETE EXAM: MAMMO SCREEN CALL BACK UNI-LEFT AND COMPLETE LEFT BREAST ULTRASOUND CLINICAL HISTORY: F/U MAMMO, NEW 6 MM NODULE,R92.8. TECHNIQUE: Unilateral spot mammographic images obtained with 3D tomosynthesisand utilizing computer aided detection (CAD). . Complete LEFT breast Ultrasound was also performed, including all 4 quadrants, the retroareolar regio n, and the ipsilateral axilla. COMPARISON: Prior mammograms were reviewed. This additional imaging was performed due to findings described on the recent screening mammogram of 03/10/2023. FINDINGS: DIAGNOSTIC MAMMOGRAM: Additional mammographic views performed todaydoes not dissipate the nodule. However, when referring numerous prior mammograms I note that this nodule appears unchanged from 2014. COMPLETE LEFT BREAST ULTRASOUND: Ultrasound performed today reveals no evidence of solid or significant cystic lesions in all 4 quadra nts. This implies that this small unchanged nodules most probably a benign intramammary lymph node o r just asymmetric fibroglandular tissue. Scanning of the ipsilateral axilla reveals no significant adenopathy. IMPRESSION: 1. Benign findings. No evidence of malignancy. Appropriate follow-up is to give this patient on a yearly mammogram schedule, with earlier imaging i f a self detected breast change is noted.. The patient was informed of these findings and recommendations myself prior to leaving the department today. BI-RADS Category 2 - Benign Findings Breast Density - Category C - Heterogeneously dense Breast density Category C or D implies that the patient has dense breast tissue. Dense breast tissue can make it harder to find cancer on a mammogram. Dense breast tissue is also associated with an incr eased risk of breast cancer. This information about the result of the mammogram report was provided to the patient to raise their awareness. Use this report when you speak with the patient about their risks for breast cancer, which includes their family history. At that time, you may recommend additional screening tests (Ultrasoun d or MRI) as these tests may add significant information. A negative radiographic report should not delay biopsy if a dominant or clinically suspicious mass is present. Up to ten percent of cancers are not identified on mammography. A negative report may reinforce clinical impression. Adenosis and dense breasts may obscure an underlying neoplasm. False positive reports average 6 to 10%. Patient will receive a letter notifying them of these results.
== END ==
PROVIDERS: PCP Nurse Practitioner Family; Visit Provider Nurse Practitioner Family
DX: Z12.31 Encounter for screening mammogram for malignant neoplasm of breast (principal); R92.8 Other abnormal and inconclusive findings on diagnostic imaging of breast
CPT/HCPCS: 76642; 77063; 77067

== ENCOUNTER 2023-07-02 14:25 | Emergency (ER) | payer MEDICARE, SELFPAY ==
[2023-07-02 14:27] VITALS: BP 117/66; PULSE 61; RESP 16; TEMP 37.1; O2SAT 98
--- NOTE | 2023-07-02 14:30 | DI.CT_ITS ---
Exam(s) CT ABDOMEN PELVIS W EXAM: CT ABDOMEN PELVIS W CLINICAL HISTORY: RLQ abd pain, constipation; right flank pain. TECHNIQUE: Imaging Protocol: Axial computed tomography images with coronal and sagittal reformatted images were created and reviewed CONTRAST MATERIAL: Intravenous: Omnipaque-350 100cc Oral: None COMPARISON: No exams were available for comparison FINDINGS: VISUALIZED LUNG BASES: No nodules nor pleural effusions evident. ABDOMEN: There is no ascites. LIVER: There are no focal hepatic lesions evident. No dilated intrahepatic ducts. GALLBLADDER/BILIARY: No obvious gallbladder pathology. CBD is not dilated. PANCREAS: No evidence of pancreatic mass nor dilatation of the pancreatic duct. SPLEEN: Spleen is not enlarged. No obvious intrasplenic lesions. Splenic and portal veins are paten t. ADRENALS: There are no significant adrenal masses. KIDNEYS:No cysts evident. No solid renal masses. No calculi nor hydronephrosis.. ABDOMINAL AORTA: Abdominal aorta is not enlarged. LYMPH NODES:There is no retroperitoneal nor paraaortic adenopathy. ABDOMINAL WALL: No evidence of significant anterior abdominal wall nor inguinal hernia. GI: There is a small bowel I ileus/enteritis pattern. Multiple small bowel loops are filled with flu id, exhibit upper normal diameters, but without evidence of obstruction. There is no colitis pattern evident. PELVIS: GI: No evidence of appendicitis.No evidence of sigmoid diverticulitis. LYMPH NODES: There is no intrapelvic nor inguinal adenopathy. REPRODUCTIVE: There is a right-sided calcified uterine fibroid. No abnormal adnexal masses. No free fluid in the pelvis. URINARY BLADDER: No calculi nor obvious masses evident. Mildly distended. OSSEOUS: No fractures and no significant osseous lesions. IMPRESSION: 1. Small bowel ileus/enteritis pattern. No evidence of bowel obstruction, free air, nor abscess. No ascites. 2. Calcified uterine fibroid RADIATION DOSE DELIVERED: Total DLP DATA REPOSITORY: All CT scans at this facility are submitted to the National Radiology Data Registry (NRDR) Dose Index Registry (DIR) with the [employer] (A[employer]). RADIATION OPTIMIZATION: All CT scans at this facility use at least one of these dose optimization te chniques: automated exposure control; mA and/or kV adjustment per patient size (includes targeted exa ms where dose is matched to clinical indication); or iterative reconstruction.
--- NOTE | 2023-07-02 14:45 | W.ED.GENAD ---
Discharge Plan Disposition Patient Disposition: Home Condition: Improving Discharge Details Chief Complaint: Abd Prob Clinical Impression: Ileus Primary Care Provider: Felipa Mensah ED Provider: Tres Colvin Home Meds and New Rx's Prescriptions: No Action alendronate [Fosamax] 70 mg tablet 70 mg PO QWEEK Qty: 15 3RF ibuprofen 600 mg tablet 600 mg PO TID PRNQty: 60 3RF Discharge Instructions Instructions: Ileus (ED) Additional Instructions: Please follow-up closely with your primary care physician. Discussed possible medication adverse reaction. Please return to the emergency department for any worsening symptoms HPI General Date/Time Provider Initiated Documentation: 07/02/23 14:30. HPI Narrative: 73-year-old female presents with right lower quadrant abdominal pain and right flank discomfort over the last 5 days. Associate with constipation. No history of abdominal surgery. No vomiting. Patient has mild nausea. Related Data Home Medications Medication Instructions Recorded Confirmed ibuprofen 600 mg tablet 600 mg PO TID PRN #60 tabs 10/19/18 07/02/23 alendronate 70 mg tablet (Fosamax) 70 mg PO QWEEK #15 tabs 04/28/23 07/02/23 Previous Rx's Medication Instructions Recorded ibuprofen 600 mg tablet 600 mg PO TID PRN #60 tabs 10/19/18 alendronate 70 mg tablet (Fosamax) 70 mg PO QWEEK #15 tabs 04/28/23 Allergies Allergy/AdvReac Type Severity Reaction Status Date / Time No Known Allergies Allergy Unverified 07/02/23 14:30 General Stated Complaint: Abd Prob JOHN: 3 Review of Systems Narrative: Review of Systems Constitutional: negative Eyes: negative ENT: negative Cardiovascular: negative Respiratory: negative Gastrointestinal: Right lower quadrant abdominal pain, right flank pain : negative Musculoskeletal: negative Skin: negative Neurologic: negative Psych: negative Exam Narrative Exam Narrative: Physical Examination General: alert, awake, cooperative, resting comfortably, no acute distress HEENT: normocephalic, atraumatic; PERRL, EOM intact, conjunctiva normal; no nasal discharge; moist mucous membranes, oral and pharyngeal mucosa normal, tolerating secretions Neck: supple, trachea midline; full ROM Chest: normal to inspection Respiratory: normal respiratory effort, speaking in full sentences, clear to auscultation, no wheezing, rales or rhonchi Cardiac: regular rate, regular rhythm, S1S2 intact, no murmurs rubs or gallops GI: abdomen soft, non-tender, non-distended; no palpable mass or hepatosplenomegaly Skin: no lesions, rashes or trauma appreciated Neuro: AAOx3, normal speech, moving all extremities Psych: Appropriate mood and affect Course Vital Signs Vital signs: Vital Signs Temperature 37.1 C 07/02/23 14:27 Pulse 61 07/02/23 14:27 Respiratory Rate 16 07/02/23 14:27 Blood Pressure 117/66 07/02/23 14:27 Pulse Oximetry 98 07/02/23 14:27 Temperature 37.1 C 07/02/23 14:27 Temperature Source Skin 07/02/23 14:27 Pulse 61 07/02/23 14:27 Respiratory Rate 16 07/02/23 14:27 Respiratory Effort Normal, Non-Labored 07/02/23 14:29 Blood Pressure 117/66 07/02/23 14:27 Blood Pressure Position Sitting 07/02/23 14:27 Pulse Oximetry 98 07/02/23 14:27 Oxygen Delivery Method Room Air 07/02/23 14:27 Oxygen Flow Rate 0 07/02/23 14:27 Pain Level 5 07/02/23 14:27 Medical Decision Making 73-year-old female presents with right lower quadrant pain and nausea, associate with constipation, no history of abdominal surgeries, right flank pain over the last couple of days no urinary symptoms. Afebrile nontoxic nonperitoneal. Consider appendicitis versus constipation versus nephrolithiasis versus UTI versus colitis versus less likely bowel obstruction less consider malignancy versus musculoskeletal discomfort. Screening labs imaging patient does not want analgesia at this time. Will provide fluids and antiemetics. CT abdomen pelvis with IV contrast. Close reassessment 16: 58 evidence of partial ileus likely component of constipation as well. Patient recently started alendronate for osteoporosis consider medication reaction. Patient will counselor supervisor with her primary care physician. Given home care instructions and return precautions. Patient feeling better has a good appetite. Quality:SDOH Health Related Social Needs: No Data to Display PFSH All Active Problems (Updated 07/02/23 @ 17:01 by Tres Colvin MD) Ileus (Acute) Osteoporosis (Chronic) Fosamax started 2023 Hyperlipidemia (Chronic) Insomnia (Chronic) Does not desire treatment Allergic rhinitis (Chronic) Medical History (Updated 07/02/23 @ 17:01 by Tres Colvin MD) COVID-19 virus infection (~02/2021) GERD (gastroesophageal reflux disease) Surgical History (Updated 01/26/23 @ 09:05 by Felipa Mensah NP) History of right cataract surgery (~2022) S/P colonoscopy (03/01/19) S/P ORIF (open reduction internal fixation) fracture (10/19/18) of Left and Right Distal Radius Fractures S/P tonsillectomy and adenoidectomy Family History Mother , at 86 Heart disease Breast cancer in her 80s Type 2 diabetes mellitus Valvular heart disease Father Alzheimer's disease Sister Breast cancer Twice, at age 52 and 62 Brother Heart disease Atrial fibrillation Dementia Brother Multiple sclerosis Metastatic lung cancer (metastasis from lung to other site) Brother , at 67 of Non-Hodgkins Lymphoma Non Hodgkin's lymphoma Son Asthma Son No problems noted. Daughter GERD (gastroesophageal reflux disease) Maternal Grandfather No problems noted. Maternal Grandmother Heart disease Paternal Grandfather No problems noted. Paternal Grandmother Breast cancer In her 90s Social History (Updated 01/27/23 @ 12:25 by Nicolasa Adams) Smoking/Tobacco Use Status: Former Tobacco Use Quit Date: 03/28/75 Tobacco: How many years used: 2 Second Hand Exposure: No Smoking risk assessment performed?: Yes Alcohol Intake: current Alcohol Intake frequency: a few times a week Alcohol type: wine and hard liquor Drug use: Never Substance use type: does not use Adopted: No Caregiver/Support person: No Foster care: No Household members: spouse Housing: house Number of Children: 3 number of grandchildren: 3 Communication Needs: Corrective Lenses Education Level: master's degree Do you need help understanding health information?: Never Pets and animals: No Sexually active: No Do you think of yourself as: straight/heterosexual Current gender identity: female What is your relationship status?: How often do you talk on the phone with friends or family?: once per week How often do you get together with friends or relatives?: once per week How often do you attend sabianist or tenriism services?: decline to answer Do you belong to any clubs or organized social groups?: yes Panel score (0-1 are the most socially isolated patients): 2 What type of physical activity do you participate in: walking Duration: 15-30 minutes/day Frequency: 3-4 times per week Melania/Zoroastrianism: None Special melania needs: No Seatbelt use: always Drive intox or ride w/intox parts driver: No Working smoke detector in home: Yes Carbon monox detector in home: Yes Do you feel safe at home: Yes Do you feel safe in your relationship?: Yes Victim of physical abuse: No Victim of emotional abuse: No Victim of sexual abuse: No Would you like helpful sources: No Female Reproductive History Menstrual Menopause type: natural History History 3 Para 2 Hx # Term Pregnancies Multiple births 1 Hx # Pregnancies Ectopic pregnancies AB induced 1 Hx Number of Living Children 3 AB spontaneous
[2023-07-02] MEDS: Ondansetron 4 MG/2 ML VIAL IVP (14:52)
[2023-07-02] MEDS: Normal Saline 1,000 ML 1000 ML IV (14:52)
[2023-07-02 14:55] LABS: Abs Immature Grans 0.01 10^3/uL (0.0-0.06); Absolute Basophil Count 0.01 10^3/uL (0.0-0.2); Absolute Eosinophil Count 0.11 10^3/uL (0.0-0.7); Absolute Lymphocyte Count 0.96 10^3/uL (1.2-3.4); Absolute Monocyte Count 0.39 10^3/uL (0.1-0.8); Absolute Neutrophil Count 3.22 10^3/uL (1.2-6.7); Basophils % 0.2; Eosinophils % 2.3; HCT 40.1 % (36.0-46.0); HGB 13.1 g/dL (11.2-15.7); Immature Grans % 0.2; Lymphocytes % 20.4; MCH 31.3 pg (27.0-33.0); MCHC 32.7 % (32.0-36.0); MCV 96 fL (80-95); MPV 9.2 fL (8.0-11.0); Monocytes % 8.3; Neutrophils % 68.6; Platelet Count 241 10^3/uL (130-400); RBC 4.18 10^6/uL (3.93-5.22); RDW 12.7 % (11.7-14.6)
[2023-07-02 15:08] LABS: ALT 43 U/L (14-59); AST 27 U/L (15-37); Albumin 4.3 g/dL (3.4-5.0); Alkaline Phosphatase 68 U/L (46-116); Anion Gap 9.7 mmol/L (3-11); BUN 17 mg/dL (7-18); Bilirubin, Total 0.4 mg/dL (0.2-1.0); CO2 26.3 mmol/L (21.0-32.0); CREATININE 0.9 mg/dL (0.55-1.02); Calcium 9.2 mg/dL (8.5-10.1); Chloride 102 mmol/L (98-107); Estimated GFR 68.35 (mL/min/1.73m2); Glucose 95 mg/dL (74-106); Potassium 3.7 mmol/L (3.5-5.1); Sodium 138 mmol/L (136-145); Total Protein 7.4 g/dL (6.4-8.2)
[2023-07-02] MEDS: Normal Saline Flush 10 ML SYR IJ (15:19)
[2023-07-02] MEDS: Normal Saline - Diluent 50 ML VIAL IJ (15:22)
[2023-07-02] MEDS: Omnipaque 350 MG/ML 100 ML BTL 84 ML IJ (15:23)
--- NOTE | 2023-07-02 16:09 | DI.VRAD_ITS ---
PROCEDURE INFORMATION: Exam: CT Abdomen And Pelvis With Contrast Exam date and time: 07/02/2023 3:22 PM Age: 73 years old Clinical indication: Abdominal pain; Right lower quadrant (rlq); Patient HX: Rlq abd pain, constipation; Right flank pain TECHNIQUE: Imaging protocol: Computed tomography of the abdomen and pelvis with contrast. COMPARISON: US PELVIS TRANSVAGINAL 12/31/2021 09:22 FINDINGS: Lungs: Visualized lung bases are clear. Liver: Normal. No mass or intrahepatic biliary ductal dilatation. Gallbladder and bile ducts: Normal. No calcified stones. No ductal dilation. Pancreas: Normal. No mass or ductal dilation. Spleen: Normal. No splenomegaly. Adrenal glands: Normal. No mass. Kidneys and ureters: Normal. No hydronephrosis, calculus, cyst or mass. Stomach and bowel: There are minimally dilated fluid-filled loops of small bowel suggesting ileus. No significant constipation. Appendix: No evidence of appendicitis. Intraperitoneal space: Unremarkable. No free air. No significant fluid collection. Vasculature: Unremarkable. No abdominal aortic aneurysm or significant atherosclerosis. Lymph nodes: No enlarged retroperitoneal or mesenteric lymph nodes. Urinary bladder: No mass or wall thickening. Reproductive: Unremarkable as visualized. Bones/joints: Unremarkable. No acute fracture. No lytic lesion. Soft tissues: Unremarkable. IMPRESSION: Mild small bowel ileus. Dictated and Authenticated by: Vivek Landry MD. Ordering:WADE Joshua MD
[2023-07-02 16:17] LABS: Bilirubin Negative (Negative); Blood Negative (Negative); Clarity Clear (Clear); Glucose Negative (Negative); Ketones Negative (Negative); Leukocyte Esterase Trace (Negative); Nitrite Negative (Negative); Specific Gravity 1.015 (1.005-1.025); Urobilinogen 0.2 mg/dL (Up to 0.2)
[2023-07-02 16:26] LABS: Bacteria Negative HPF (Negative); C & S Indicated? No; Crystals Negative HPF (Negative); Epithelial Cells Rare HPF (Negative); Mucus Negative (Negative); RBC Negative HPF (0-2); WBC 0-2 HPF (0-5)
[2023-07-02 16:31] VITALS: BP 109/59; PULSE 54; RESP 16; TEMP 36.1; O2SAT 97
[2023-07-02 17:31] VITALS: BP 120/69; PULSE 59; RESP 18; O2SAT 98
== END 2023-07-02 17:32 | disposition home or self-care (01) ==
PROVIDERS: Emergency Provider Emergency Medicine; PCP Nurse Practitioner Family
DX: K56.7 Ileus, unspecified (principal); R11.0 Nausea; Z87.891 Personal history of nicotine dependence
CPT/HCPCS: 36415; 80053; 96361; 96374; 99285; 74177; 81003; 81015; 85025; 99284; J2405; J3490

== ENCOUNTER 2023-12-22 16:20 | Outpatient (REF) | payer MEDICARE, SELFPAY ==
[2023-12-22 21:25] LABS: Hemoglobin A1C 5.1 % (<5.7)
[2023-12-22 21:39] LABS: Anion Gap 6.8 mmol/L (3-11); BUN 17 mg/dL (7-18); CO2 28.2 mmol/L (21.0-32.0); CREATININE 0.9 mg/dL (0.55-1.02); Calcium 9.9 mg/dL (8.5-10.1); Chloride 103 mmol/L (98-107); Estimated GFR 68.35 (mL/min/1.73m2); Glucose 94 mg/dL (74-106); Magnesium 2.6 mg/dL (1.8-2.4); Potassium 4.2 mmol/L (3.5-5.1); Sodium 138 mmol/L (136-145)
== END 2023-12-22 16:21 | disposition home or self-care (01) ==
LOC: LBN 16:20
PROVIDERS: PCP Nurse Practitioner Family; Visit Provider Nurse Practitioner Family
DX: R25.2 Cramp and spasm; M25.361 Other instability, right knee; M25.571 Pain in right ankle and joints of right foot; M79.672 Pain in left foot; R73.09 Other abnormal glucose
CPT/HCPCS: 80048; 83036; 83735; 84443

== ENCOUNTER 2024-01-30 09:18 | Outpatient (CLI) | payer MEDICARE, SELFPAY ==
[2024-01-30 12:20] LABS: Magnesium 2.3 mg/dL (1.8-2.4)
[2024-01-30 19:36] LABS: HBs Antibody, Quant <3.1 mIU/mL (See Note); Hep B Surface Ab Negative (See Note); Hepatitis B Core Antibody Negative (Negative); Hepatitis B Surface Antigen Negative (Negative)
[2024-01-30 19:40] LABS: HIV-1/2 Ag & Ab Screen Negative (Negative)
== END 2024-01-30 09:19 | disposition home or self-care (01) ==
LOC: LOS 09:18
PROVIDERS: PCP Nurse Practitioner Family; Referring Provider Nurse Practitioner Family; Visit Provider Nurse Practitioner Family
DX: E83.41 Hypermagnesemia (principal); Z11.59 Encounter for screening for other viral diseases; Z11.4 Encounter for screening for human immunodeficiency virus [HIV]; Z12.39 Encounter for other screening for malignant neoplasm of breast
CPT/HCPCS: 36415; 86704; 86706; 87340; 87389; 83735

== ENCOUNTER 2024-02-08 01:11 | Outpatient (CLI) | payer MEDICARE, SELFPAY ==
--- NOTE | 2024-02-08 07:30 | DI.RAD_ITS ---
Exam(s) XR FOOT LT COMPLETE EXAM: XR FOOT LT COMPLETE CLINICAL HISTORY: Left foot pain,m79.672. TECHNIQUE: 2D digital imaging was performed of the left foot. Three images were obtained. AP, obli que and lateral views were obtained. COMPARISON: No exams were available for comparison FINDINGS: BONES: No acute fracture is present. No bony destructive lesion is seen. JOINTS: No dislocation present. There are degenerative changes seen at the 2nd tarsometatarsal joint. There also mild degenerative changes seen at the 1st MTP joint in the interphalangeal joints of the toes. There is a hallux valgus deformity. There is a hammertoe deformity of the 2nd toe. SOFT TISSUE: Normal. IMPRESSION: Chronic changes of the foot including degenerative changes, hammertoe deformity and hallux valgus def ormity. DATA REPOSITORY: RADIATION DOSE DELIVERED:
== END 2024-02-08 01:31 ==
LOC: DI 01:11
PROVIDERS: PCP Nurse Practitioner Family; Visit Provider Podiatrist
DX: M20.22 Hallux rigidus, left foot (principal)
CPT/HCPCS: 73630

== ENCOUNTER 2024-03-24 10:52 | Outpatient (REF) | payer MEDICARE, SELFPAY | END 2024-03-24 10:53 | disposition home or self-care (01) | LOC: LBN 10:52 | PROVIDERS: PCP Nurse Practitioner Family; Visit Provider Physician Assistant | DX: J02.9 Acute pharyngitis, unspecified (principal) | CPT/HCPCS: 87070 ==

== ENCOUNTER 2024-03-30 00:03 | Outpatient (CLI) | payer MEDICARE, SELFPAY ==
--- NOTE | 2024-03-30 06:47 | DI.MAMMO_ITS ---
Exam(s) MAMMO SCREENING EXAM: MAMMO SCREENING CLINICAL HISTORY: screening,z12.39. TECHNIQUE: Bilateral full field digital CC and MLO mammographic images were obtained with 3D tomosyn thesis and utilizing computer aided detection (CAD). COMPARISON: Prior mammograms were reviewed. FINDINGS: There has been no significant change in the appearance and distribution of the fibroglandular tissue. Asymmetric tissue anteriorly in the right breast is unchanged from prior mammograms. Previously desc ribed asymmetric density-possible nodule in the left breast is also unchanged from prior mammograms There are no new spiculated masses nor malignant appearing microcalcification groups. There is no significant architectural distortion nor skin thickening-retraction. IMPRESSION: No radiographic evidence of malignancy. BI-RADS Category 1 - Negative Breast Density - Category C - Heterogeneously dense Breast density Category C or D implies that the patient has dense breast tissue. Dense breast tissue can make it harder to find cancer on a mammogram. Dense breast tissue is also associated with an incr eased risk of breast cancer. This information about the result of the mammogram report was provided to the patient to raise their awareness. Use this report when you speak with the patient about their risks for breast cancer, which includes their family history. At that time, you may recommend additional screening tests (Ultrasoun d or MRI) as these tests may add significant information. A negative radiographic report should not delay biopsy if a dominant or clinically suspicious mass is present. Up to ten percent of cancers are not identified on mammography. A negative report may reinforce clinical impression. Adenosis and dense breasts may obscure an underlying neoplasm. False positive reports average 6 to 10%. Patient will receive a letter notifying them of these results.
== END 2024-03-30 00:23 ==
PROVIDERS: PCP Nurse Practitioner Family; Visit Provider Nurse Practitioner Family
DX: Z12.31 Encounter for screening mammogram for malignant neoplasm of breast (principal); R92.333 Mammographic heterogeneous density, bilateral breasts
CPT/HCPCS: 77063; 77067

== ENCOUNTER 2024-06-28 01:28 | Outpatient (CLI) | payer MEDICARE, SELFPAY ==
--- NOTE | 2024-06-28 06:45 | DI.RAD_ITS ---
Exam(s) XR FOOT LT COMPLETE EXAM: XR FOOT LT COMPLETE CLINICAL HISTORY: left foot pain,m79.672. TECHNIQUE: 2D digital imaging was performed of the left foot. Three images were obtained. AP, obli que and lateral views were obtained. COMPARISON: No exams were available for comparison FINDINGS: BONES: No acute fracture is present. No bony destructive lesion is seen. JOINTS: No dislocation present. There is a hallux valgus deformity again seen. Degenerative changes are seen in the foot particularly at the 2nd tarsometatarsal joint in the 1st metatarsophalangeal alba nt. Hammertoe deformities of the 2nd toe are noted. SOFT TISSUE: Normal. IMPRESSION: Stable chronic changes of the left foot. No acute abnormality. DATA REPOSITORY: RADIATION DOSE DELIVERED:
== END 2024-06-28 01:48 ==
LOC: DI 01:28
PROVIDERS: PCP Nurse Practitioner Family; Visit Provider Podiatrist
DX: M79.672 Pain in left foot (principal); M19.072 Primary osteoarthritis, left ankle and foot; M21.612 Bunion of left foot; M20.42 Other hammer toe(s) (acquired), left foot; R25.2 Cramp and spasm; M21.622 Bunionette of left foot
CPT/HCPCS: 20600; J0702; J1100; 73630

== ENCOUNTER 2024-07-25 00:50 | Outpatient (CLI) | payer MEDICARE, SELFPAY ==
--- NOTE | 2024-07-25 06:49 | DI.US_ITS ---
Exam(s) US PELVIS TRANSVAGINAL EXAM: US PELVIS TRANSVAGINAL CLINICAL HISTORY: rt lower abd and groin pain,rlq pain,r10.31 TECHNIQUE: Transabdominal and transvaginal imaging was performed using standard protocol. COMPARISON: CT CT ABDOMEN PELVIS W from 07/02/2023 FINDINGS: The transabdominal images are limited by and empty bladder. UTERUS: Retroverted. 4.5 x 2.5 x 4.2 cm Endometrium: 2 mm. Fluid within the endometrial canal. No focal abnormalities identified. Myometrium: Calcified fibroid measuring 11 millimeters toward the right closer to the fundus. Cervix: Unremarkable. OVARIES: Right: Cyst or mass: None. Left: Cyst or mass: None. DOPPLER: Color: Symmetric and uniform flow to both ovaries. No hyperemia. CUL-DE-SAC: Free fluid: None. IMPRESSION: 1. Calcified uterine fibroid. Fluid within the endometrial cavity. No evidence of endometrial thick ening or focal abnormality. 2. Unremarkable bilateral ovaries. DATA REPOSITORY:
== END 2024-07-25 01:10 ==
LOC: DI 00:50
PROVIDERS: PCP Nurse Practitioner Family; Visit Provider Nurse Practitioner Family
DX: R10.31 Right lower quadrant pain (principal)
CPT/HCPCS: 76830; 76856

== ENCOUNTER → 2024-12-10 08:24 | Outpatient (BNVA) | payer MEDICARE, SELFPAY | PROVIDERS: PCP Nurse Practitioner Family; Referring Provider Nurse Practitioner Family; Visit Provider Podiatrist | DX: M25.572 Pain in left ankle and joints of left foot (principal); M21.612 Bunion of left foot; M20.42 Other hammer toe(s) (acquired), left foot; R25.2 Cramp and spasm; M19.172 Post-traumatic osteoarthritis, left ankle and foot; M21.622 Bunionette of left foot | CPT/HCPCS: 20600; J0702; J1100 ==